=== PATIENT | male | born 1945 | race Caucasian/White ===

== ENCOUNTER 2020-02-12 12:20 | Outpatient (CLI) | payer OTHER | END 2020-02-12 12:21 | disposition home or self-care (01) | LOC: LAB 12:20 | PROVIDERS: ATTEND Ophthalmology | DX: Z01.812 Encounter for preprocedural laboratory examination (principal); Z20.828 Contact with and (suspected) exposure to other viral communicable diseases; H25.11 Age-related nuclear cataract, right eye ==

== ENCOUNTER 2020-02-15 07:18 | Day surgery (SDC) | payer OTHER ==
[~2020-02-15 07:18] MED LIST: CYCLOPENTOLATE 1% OPHTH DROPS 2 ML ONE; KETOROLAC 0.45% OPHTH DROPS ONE; PHENYLEPHRINE 2.5% OPHTH 2 ML DROPS ONE; PROPARACAINE 0.5% OPHTH DROPS 15 ML ONE
[2020-02-15] MEDS ORDERED: LACTATED RINGERS 1,000 ML IV ONE (07:33)
--- NOTE | 2020-02-15 08:28 | ANESTHESIA ---
Pre-Anesthesia VS, & Labs - Diagnosis R nuclear sclerotic cataract - Procedure R extraction cataract w/IOL Vital Signs: Temp Pulse Resp BP Pulse Ox 36.8 C 67 20 175/94 H 100 02/15/20 07:33 02/15/20 07:33 02/15/20 07:33 02/15/20 07:33 02/15/20 07:33 Height 5 ft 6 in Weight (kg) 77.9 kg - NPO >8 hours - Lab Results Current Lab Results: Laboratory Tests 02/15/20 07:47: POC Whole Bld Glucose 109 H Home Medications and Allergies Home Medications: Ambulatory Orders Alfuzosin HCl [Alfuzosin HCl ER] 02/14/20 Aspirin 02/14/20 Metoprolol Tartrate [Lopressor] 02/14/20 Rivaroxaban [Xarelto] 02/14/20 Triamterene/Hydrochlorothiazid [Triamterene-Hctz 37.5-25 mg Cp] 02/14/20 buPROPion HCL [Bupropion HCl] 02/14/20 diltiaZEM [Cardizem] 60 mg Q6H 02/14/20 Alfuzosin HCl [Alfuzosin HCl ER] 02/14/20 Aspirin 02/14/20 Metoprolol Tartrate [Lopressor] 02/14/20 Rivaroxaban [Xarelto] 02/14/20 Triamterene/Hydrochlorothiazid [Triamterene-Hctz 37.5-25 mg Cp] 02/14/20 buPROPion HCL [Bupropion HCl] 02/14/20 diltiaZEM [Cardizem] 60 mg Q6H 02/14/20 Allergies/Adverse Reactions: Allergies Allergy/AdvReac Type Severity Reaction Status Date / Time phenytoin [From Dilantin] Allergy Unknown Verified 02/15/20 07:42 lisinopril AdvReac Unknown Verified 02/15/20 07:42 Anes History & Medical History - Anesthetic History Anesthesia Complications: reports: No previous complications Family history of Anesthesia Complications: Denies Family history of Malignant Hyperthermia: Denies - Medical History Cardiovascular: reports: Hypertension, Arrhythmia Pulmonary: reports: None Gastrointestinal: reports: None Urinary: reports: None Musculoskeletal: reports: None Endocrine/Autoimmune: reports: Type 2 diabetes Skin: reports: None - Surgical History General: Colonoscopy Eyes Ears Nose Throat (EENT): Cataracts Exam General: Alert, Oriented x3, Cooperative Dental: WNL Mouth Openin Fingerbreadth Neck Mobility: Normal Mallampati classification: II Thyromental Distance: greater than 6 cm Respiratory: Lungs clear, Normal breath sounds Cardiovascular: Other (irreg, AF) Neurological: Normal speech Mental/Cognitive Status: Alert/Oriented X3, Normal for patient Plan Anesthesia Type: MAC Consent for Procedure(s) Verified and Reviewed: Yes Code Status: Attempt Resuscitation ASA classification: 3-Severe systemic disease Is this case an emergency?: No
[2020-02-15] MEDS ORDERED: MORPHINE 2 MG/ML CARPUJECT IVP PRN (08:29)
[2020-02-15] MEDS ORDERED: ONDANSETRON 4 MG/2 ML VIAL IVP PRN (08:29)
[2020-02-15] MEDS ORDERED: fentaNYL 100 MCG/2 ML VIAL IVP PRN (08:29)
[2020-02-15] MEDS ORDERED: METOCLOPRAMIDE 10 MG/2 ML VIAL IVP PRN (08:29)
[2020-02-15] MEDS ORDERED: ATROPINE ABBOJECT 1 MG/10 ML SYRINGE IVP PRN (08:29)
[2020-02-15] MEDS ORDERED: ePHEDrine 50 MG/ML VIAL IVP PRN (08:29)
[2020-02-15] MEDS ORDERED: HYDROmorphone 0.5 MG/0.5 ML SYRINGE IVP PRN (08:29)
[2020-02-15] MEDS ORDERED: NALOXONE 0.4 MG/ML VIAL IVP PRN (08:29)
[2020-02-15] MEDS ORDERED: TRIAMCIN/MOXIFLOX OPHTHALMIC 0.6 ML VIAL IO ONE ×2 (08:54→09:05)
[2020-02-15] MEDS ORDERED: TIMOLOL 0.5% OPHTH DROPS ONE (08:55)
[2020-02-15] MEDS ORDERED: VANCOMYCIN OPHTHALMI 8MG/0.8ML 8 MG/0.8 ML SYRINGE IO ONE ×2 (08:55→09:05)
[2020-02-15] MEDS ORDERED: BRIMONIDINE 0.2% OPHTH DROPS 5 ML ONE (08:55)
[2020-02-15] MEDS ORDERED: EPINEPHrine 1 MG/ML AMP ONE (08:55)
[2020-02-15] MEDS ORDERED: BSS/LIDOCAINE/EPINEPHRINE 1 ML SYRINGE ONE (08:55)
[2020-02-15] MEDS ORDERED: LACTATED RINGERS 1,000 ML IV SCH (09:00)
[2020-02-15] MEDS ORDERED: fentaNYL 100 MCG/2 ML VIAL IVP ONE (09:00)
[2020-02-15] MEDS ORDERED: MIDAZOLAM 2 MG/2 ML VIAL IVP ONE (09:00)
[2020-02-15] MEDS ORDERED: TIMOLOL 0.5% OPHTH DROPS OPTH ONE (09:04)
[2020-02-15] MEDS ORDERED: EPINEPHrine 1 MG/ML AMP IR ONE (09:04)
[2020-02-15] MEDS ORDERED: CHONDR SULF/HYALURONATE SYRINGE IO ONE (09:04)
[2020-02-15] MEDS ORDERED: BSS/LIDOCAINE/EPINEPHRINE 1 ML SYRINGE IO ONE (09:04)
[2020-02-15] MEDS ORDERED: BRIMONIDINE 0.2% OPHTH DROPS 5 ML OPTH ONE (09:04)
[2020-02-15] MEDS ORDERED: PROPARACAINE 0.5% OPHTH DROPS 15 ML EACHEYE ONE (09:05)
[2020-02-15] MEDS ORDERED: LACTATED RINGERS 500 ML IV ONE (09:20)
--- NOTE | 2020-02-15 09:30 | ANESTHESIA POST OP EVALUATION ---
Anesthesia Post Eval - Post Anesthesia Eval Vitals: Last Vital Signs Temp 37.4 C 02/15/20 09:20 Pulse 58 L 02/15/20 09:28 Resp 10 L 02/15/20 09:28 BP 131/73 H 02/15/20 09:28 Pulse Ox 98 02/15/20 09:28 CV Function Including HR & BP: positive: Stable Pain Control: positive: Satisfactory Nausea & Vomiting: positive: Negative Mental Status: positive: Baseline Respiratory Status: Airway Patent Hydration Status: Satisfactory Anesthesia Complications: positive: None
[2020-02-15 09:39] VITALS: BP 127/78
--- NOTE | 2020-02-15 09:45 | OPERATIVE REPORT ---
DATE OF SERVICE: 02/15/2020 Physician: Odilon Landaverde MD PREOPERATIVE DIAGNOSIS: Visually significant cataract, right eye. Cataract surgery was performed on the left eye at the [facility] in 2019. POSTOPERATIVE DIAGNOSIS: Visually significant cataract, right eye. Cataract surgery was performed o n the left eye at the [facility] in 2019. PROCEDURE: Phacoemulsification with posterior chamber intraocular lens implant, right eye. SURGEON: Odilon Landaverde MD ANESTHESIA: Monitored anesthesia care. COMPLICATIONS: None. OPERATIVE INDICATIONS: This is a 74-year-old man with progressive vision loss in the right eye due t o 2+ nuclear sclerotic and vacuolar cataract. Best corrected visual acuity was 20/70, with glare to 20/630 in the right eye. Indications for surgery were overall decrease in vision; difficulty seeing words, closed caption or game scores on TV; and difficulty with glare or bright lights in any situati on. He was consented at length concerning risks and benefits of cataract surgery, after which he exp ressed a desire to proceed with surgery. OPERATIVE PROCEDURE: Patient was taken to OR #3 and placed under monitored anesthesia care. A surgi santa timeout was conducted confirming correct patient, correct procedure, and correct surgical site. He was given topical anesthesia, and then prepped and draped in the usual sterile fashion. The eye w as entered at the 12 and 9 o'clock positions. Intracameral Shugarcaine was injected into the anterio r chamber, followed by Viscoat. A continuous-tear curvilinear capsulorrhexis was performed. The nuc leus was hydrodissected and phacoemulsified. The cortex was evacuated using automated infusion and a spiration. Provisc was injected in the capsular bag, and a 23.0 diopter intraocular lens was inserte d into the bag. Infusion and aspiration were used to evacuate the viscoelastic materials. The eye w as inflated to physiologic pressure using a balanced salt solution and found to be watertight. Appro ximately 0.25 mL of a mixture of triamcinolone and moxifloxacin was injected transsclerally into the vitreous in the inferotemporal quadrant. An additional 0.55 mL mixture of triamcinolone, moxifloxaci n and vancomycin was injected subconjunctivally in the superior quadrant for infection and inflammati on prophylaxis. Wound integrity was checked with Weck-Devika sponges. Patient was taken [facility] condition and given postoperative instructions. TD: 02/15/2020 09:39
== END 2020-02-15 07:19 | disposition home or self-care (01) ==
LOC: SDS 07:18
PROVIDERS: ATTEND Ophthalmology
DX: E11.36 Type 2 diabetes mellitus with diabetic cataract (principal); H25.11 Age-related nuclear cataract, right eye; I10 Essential (primary) hypertension; G47.33 Obstructive sleep apnea (adult) (pediatric); F41.9 Anxiety disorder, unspecified; I49.9 Cardiac arrhythmia, unspecified; Z98.42 Cataract extraction status, left eye
CPT/HCPCS: 66984; A9270; J3490; J7120; V2632

== ENCOUNTER 2025-03-25 14:28 | Inpatient (IN) ==
[2025-03-25 14:51] LABS: GLUCOSE, URINE (UA) >=1000 mg/dL (NEGATIVE); KETONES,URINE (UA) 80 mg/dL (NEGATIVE); OCCULT BLOOD,URINE MODERATE (NEGATIVE)
[2025-03-25 15:00] LABS: SQUAMOUS EPITHELIAL CELL,UR NONE SEEN (<= Few)
--- NOTE | 2025-03-25 15:17 | CT Report ---
PROCEDURE: CT Head WO INDICATIONS: fall found down TECHNIQUE: CT of the head was performed, without intravenous contrast. Reformats: Coronal and sagittal. For radiation dose reduction, the following was used: automated exposure control, adjustment of mA and/or kV according to patient size. COMPARISON: None. FINDINGS: Image quality: Diagnostic. CSF spaces: Basal cisterns are patent. No extra-axial fluid collections. Ventricles are normal in size and shape. Brain: No midline shift. No intracranial mass effect or hemorrhage. Torres- white matter interface is normal. Diffuse parenchymal volume loss with periventricular white matter hypodensities consistent with chronic microvascular ischemic disease. Skull and face: Calvarium and visualized facial bones are intact, without suspicious lesions. Sinuses: Visualized sinuses and mastoids are clear. IMPRESSION: No acute intracranial pathology. Reviewed by: Bryan Hirsch MD on 03/25/2025 2:14 PM LORNA Approved by: Bryan Hirsch MD on 03/25/2025 2:14 PM LORNA Station ID: [id number]
--- NOTE | 2025-03-25 15:19 | CT Report ---
PROCEDURE: CT Cervical Spine WO INDICATIONS: neck pain after fall TECHNIQUE: Noncontrast images acquired from the skull base to the T4 level. Sagittal and coronal reformats were then constructed. For radiation dose reduction, the following was used: automated exposure control, adjustment of mA and/or kV according to patient size. COMPARISON: None. FINDINGS: Image quality: Excellent. Bones: No fractures or dislocations. Visualized superior ribs are intact. Multilevel spondylitic changes. Soft tissues: Prevertebral soft tissues are normal in thickness. No paravertebral hematomas. No apical pneumothoraces. Moderate right inferior maxillary sinus disease IMPRESSION: No acute cervical findings Reviewed by: Bryan Hirsch MD on 03/25/2025 2:15 PM AKDT Approved by: Bryan Hirsch MD on 03/25/2025 2:15 PM AKDT Station ID: [id number]
--- NOTE | 2025-03-25 15:20 | XRAY Report ---
PROCEDURE: XR Chest 1V INDICATIONS: sob TECHNIQUE: One view of the chest was acquired. COMPARISON: None. FINDINGS: Surgical changes and devices: None. Lungs and pleura: Right basilar interstitial prominence and opacity concerning for pneumonia. Elevation left hemidiaphragm. Retrocardiac opacity favored to represent hiatal hernia. No pleural effusion. No pneumothorax. Mediastinum: Cardiomegaly. Normal contour otherwise. Bones and chest wall: No suspicious bony lesions. Overlying soft tissues appear unremarkable. IMPRESSION: Right basilar opacity concerning for pneumonia. Probable hiatal hernia Reviewed by: Bryan Hirsch MD on 03/25/2025 2:16 PM AKDT Approved by: Bryan Hirsch MD on 03/25/2025 2:16 PM AKDT Station ID: [id number]
[2025-03-25 15:38] LABS: HCT - HEMATOCRIT 52.4 % (42.0-52.0); HGB - HEMOGLOBIN 17.4 g/dL (14.0-18.0); MEAN PLATELET VOLUME 12.1 fL (7.4-11.4); NRBC ABSOLUTE COUNT (AUTO) 0.00 x10^3/uL; NUCLEATED RED BLOOD CELLS AUTO 0.0 /100WBC; PLT - PLATELET COUNT 117 10^3/uL (130-450); RED CELL DISTRIBUTION WIDTH 12.8 % (12.0-15.0)
[2025-03-25 15:40] LABS: SLIDE REVIEW? Indicated
[2025-03-25 15:51] LABS: ALT ALANINE AMINOTRANSFERASE 50 IU/L (10-60); AST ASPARTATE AMINOTRANSFERASE 30 IU/L (10-42); BUN - BLOOD UREA NITROGEN 19 mg/dL (6-20); CARBON DIOXIDE - CO2 22 mmol/L (21-32); CK- CREATINE KINASE 298 IU/L (30-223); CREATININE 1.0 mg/dL (0.6-1.3); ETOH - ETHANOL < 10.0 mg/dL; GFR - MDRD 72 (>89)
[2025-03-25 16:07] LABS: PLATELET ESTIMATE, MANUAL DECREASED (<130,000) (NORMAL); PLATELET MORPHOLOGY RARE GIANT PLATELETS (NORMAL); RBC MORPHOLOGY (MULTIPLE) 1+ MACROCYTOSIS (NORMAL)
[2025-03-25] MEDS: SODIUM CHLORIDE 0.9% 1,000 ML IV STA ×2 (16:15→17:40)
[2025-03-25] MEDS: cefTRIAXone 1 GM VIAL IVP STA (16:57)
--- NOTE | 2025-03-25 17:30 | ED Physician Documentation ---
History of Present Illness Stated complaint Stated Complaint: FOUND DOWN/FTT Chief complaint Chief Complaint: General History obtained from History obtained from: Patient History of Present Illness Timing: Prior to arrival Additonal information Additional information: Patient 79-year-old male presenting to the emergency department after a welfare check was called by his brother who lives about 3-1/2 hours away he noted he was talking to his brother last night and was reported he did not hear from him this morning at all and had been calling him throughout the day. Patient last heard from yesterday afternoon. Patient has history of dementia patient currently living on his own and does not take his medications according to his brother. He is supposedly on blood thinners on Eliquis but noncompliant with that patient ANO x 1 on arrival to able to follow some commands. He is incontinent on arrival and was found down by the EMS as he was unable to get up by himself. Patient declines any pain on initial examination. Meds/Allgy Home Medications Ambulatory Orders Medication Instructions Recorded Confirmed alfuzosin 10 mg tablet,extended 02/14/20 release 24 hr diltiazem HCl 60 mg tablet 60 mg Q6H 02/14/20 02/14/20 metoprolol tartrate 25 mg tablet 02/14/20 rivaroxaban 20 mg tablet (Xarelto) 02/14/20 triamterene 37.5 02/14/20 mg-hydrochlorothiazide 25 mg capsule bupropion 02/17/25 Allergies Allergies Allergy/AdvReac Type Severity Reaction Status Date / Time phenytoin (From Dilantin) Allergy Unknown Verified 03/25/25 14:45 lisinopril AdvReac Mild Unknown Verified 03/25/25 14:45 PFSH Active Problems All Active Problems (Updated 03/25/25 @ 19:55 by Kimberly Tariq PA-C) Failure to thrive in adult (Acute) CAP (community acquired pneumonia) (Acute) History of atrial fibrillation (Acute) History of diabetes mellitus (Acute) Altered mental status (Acute) Clavicle fracture (Acute) Medical History Medical History (Updated 03/25/25 @ 19:55 by Kimberly Tariq PA-C) History of dementia Myocarditis Diabetes Social History Social History Smoking Status: Unknown if ever smoked Do you feel safe in your home environment?: Yes History of physical, verbal, emotional, or financial abuse?: No POLST Patient has POLST: No Exam Exam Vital Signs: Vital Signs x48h Temp Pulse Resp BP Pulse Ox 03/25/25 18:45 96 24 03/25/25 18:00 62 16 185/122 H 94 03/25/25 16:44 68 16 103/83 95 03/25/25 14:34 36.6 C 85 18 131/100 H 96 Constitutional normal general appearance No signs of trauma to the head and O x 1 patient difficulty following commands initially HENMT normocephalic and head/scalp atraumatic Eyes PERRL Patient has normal conjunctiva difficulty following movements but pupils are equal round reactive to light and accommodation. Neck/C-Spine visual inspection normal Chest inspection of chest normal No rib tenderness Respiratory breath sounds equal bilaterally, normal respiratory effort and clear to auscultation bilaterally Cardiovascular normal heart rate noted, regular rhythm noted, no gallop and no rub Gastrointestinal abdomen normal to inspection Genitourinary no CVA tenderness Extremities Patient moving all extremity but difficult to follow all commands no obvious tenderness on palpation of upper or lower extremities no obvious deformity. Skin skin color normal Results Vitals Vitals: Vital Signs - 24 hr 03/25/25 14:34 03/25/25 16:44 03/25/25 18:00 Temperature 36.6 C Temperature Source Temporal Artery Scan Pulse Rate 85 68 62 Respiratory Rate 18 16 16 Blood Pressure 131/100 H 103/83 185/122 H O2 Saturation 96 95 94 O2 Source Room air Room air Room air Pain Intensity 0 0 0 03/25/25 18:45 Temperature Temperature Source Pulse Rate 96 Respiratory Rate 24 Blood Pressure O2 Saturation O2 Source Room air Pain Intensity Oxygen O2 Source Room air Labs Labs: Laboratory Tests 03/25/25 03/25/25 03/25/25 14:14 14:44 15:16 WBC 13.4 H RBC 5.25 Hgb 17.4 Hct 52.4 H MCV 99.8 H MCH 33.1 H MCHC 33.2 RDW 12.8 Plt Count 117 L MPV 12.1 H Neut # (Auto) 12.0 H Lymph # (Auto) 0.4 L Mower # (Auto) 0.8 Eos # (Auto) 0.0 Baso # (Auto) 0.0 Absolute Nucleated RBC 0.00 Nucleated RBC % 0.0 Manual Slide Review Indicated Platelet Estimate DECREASED (<130,000) Platelet Morphology RARE GIANT PLATELETS RBC Morph Micro Appear 1+ MACROCYTOSIS Sodium 135 Potassium 4.5 Chloride 97 L Carbon Dioxide 22 Anion Gap 16.0 H BUN 19 Creatinine 1.0 Estimated GFR (MDRD) 72 L Glucose 369 H Lactic Acid Calcium 9.9 Magnesium 1.9 Total Bilirubin 1.6 H AST 30 ALT 50 Alkaline Phosphatase 164 H Total Creatine Kinase 298 H Total Protein 7.0 Albumin 4.5 Globulin 2.5 Albumin/Globulin Ratio 1.8 Urine Color YELLOW Urine Clarity CLEAR Urine pH 6.0 Ur Specific Kenner 1.025 Urine Protein 100 H Urine Glucose (UA) >=1000 H Urine Ketones 80 Urine Occult Blood MODERATE Urine Nitrite NEGATIVE Urine Bilirubin NEGATIVE Urine Urobilinogen 0.2 (NORMAL) Ur Leukocyte Esterase NEGATIVE Urine RBC 6-10 H Urine WBC 0-3 Ur Squamous Epith Cells NONE SEEN Urine Bacteria None Seen Ur Microscopic Review INDICATED Urine Culture Comments NOT INDICATED Urine Opiates Screen NEGATIVE Ur Buprenorphine Scrn NEGATIVE Ur Oxycodone Screen NEGATIVE Urine Methadone Screen NEGATIVE Ur Barbiturates Screen NEGATIVE Ur Tricyclics Screen NEGATIVE Ur Phencyclidine Scrn NEGATIVE Ur Amphetamine Screen NEGATIVE U Methamphetamines Scrn NEGATIVE U Benzodiazepines Scrn NEGATIVE Urine Cocaine Screen NEGATIVE U Cannabinoids Screen NEGATIVE Ur Drug Screen Comment CUTOFF CONC BELOW: Ethyl Alcohol < 10.0 03/25/25 15:26 WBC RBC Hgb Hct MCV MCH MCHC RDW Plt Count MPV Neut # (Auto) Lymph # (Auto) Mower # (Auto) Eos # (Auto) Baso # (Auto) Absolute Nucleated RBC Nucleated RBC % Manual Slide Review Platelet Estimate Platelet Morphology RBC Morph Micro Appear Sodium Potassium Chloride Carbon Dioxide Anion Gap BUN Creatinine Estimated GFR (MDRD) Glucose Lactic Acid 3.8 H* Calcium Magnesium Total Bilirubin AST ALT Alkaline Phosphatase Total Creatine Kinase Total Protein Albumin Globulin Albumin/Globulin Ratio Urine Color Urine Clarity Urine pH Ur Specific Kenner Urine Protein Urine Glucose (UA) Urine Ketones Urine Occult Blood Urine Nitrite Urine Bilirubin Urine Urobilinogen Ur Leukocyte Esterase Urine RBC Urine WBC Ur Squamous Epith Cells Urine Bacteria Ur Microscopic Review Urine Culture Comments Urine Opiates Screen Ur Buprenorphine Scrn Ur Oxycodone Screen Urine Methadone Screen Ur Barbiturates Screen Ur Tricyclics Screen Ur Phencyclidine Scrn Ur Amphetamine Screen U Methamphetamines Scrn U Benzodiazepines Scrn Urine Cocaine Screen U Cannabinoids Screen Ur Drug Screen Comment Ethyl Alcohol PD Medical Decision Making ED course Complexity details: reviewed old records and reviewed results ED course: Patient 79-year-old male presenting to the emergency department after being found down during welfare check by EMS he is ANO x 1 on arrival unable to get up as he had apparently fallen. He has worsening dementia last heard from by brother yesterday afternoon or evening. Patient ANO x 1 difficulty following commands on arrival. Difficulty tracking. He has a history of diabetes hypertension and has hit history of being on blood thinners but is noncompliant with medications. Vital stable on arrival he is normotensive afebrile nontachycardic saturating well on room air his labs on arrival are concerning for white count of 13.1 he is no signs of anemia CMP shows no hyponatremia or hyperkalemia slight anion gap at 16 with a GFR of 72 and blood sugar 369. His magnesium level within normal limits no changes in your ALT but slightly patient CK at 98. IV fluids were started here in the ED patient received 2 L of fluids here in the ED UA shows no signs of infection but chest x-ray is concerning for right lobe pneumonia. CT head and neck showed no acute intracranial or bony abnormality. Discussed case with brother who was worried about Anil increasing dementia noticing increased weakness and incoherent that started last night. Patient stopped taking all of his medications including insulin many months ago. Patient's brother states he hasn't even opened his mail and has been obsessed with cutting up the wood around his house. He notes his worsening of his condition was last night. Patient's brother Shekhar is best reached at [phone] and living 3 and a half hours away but will be here tomorrow and is his POA. He notes he is DNR and DNI. Patient continues to worsen here in the ED he had episode of irritability having difficulty sitting still or following commands he was given a dose of Zyprexa and was able to rest here in the ED when he woke again he appeared to be talking to someone else and appeared to have some left-sided neglect possibly secondary to stroke. Patient appears to be hallucinating but confirmed with patient's brother he has no history of alcohol use small dose of Ativan ordered as patient most likely is . Discussed case with Ginette ROMERO who will admit patient. Discharge Plan Discharge Patient Disposition: 66 [facility] DC/Xfer Condition: Stable Clinical Impression: Altered mental status, History of diabetes mellitus, CAP (community acquired pneumonia), Failure to thrive in adult Interventions: ED Admission Assessment Last Done: 03/25/25 19:57
[2025-03-25] MEDS: OLANZapine 10 MG VIAL IM STA (18:09)
[2025-03-25] MEDS ORDERED: VANCOMYCIN 1 GM VIAL ONE (18:43)
[2025-03-25] MEDS: IPRATROPIUM/ALBUTEROL 3 ML NEB INH STA (18:45)
--- NOTE | 2025-03-25 18:48 | HISTORY & PHYSICAL EXAMINATION ---
Chief Complaint Chief Complaint Chief Complaint: found down History of Present Illness Admitted From Admitted From:: home History Obtained From Records Reviewed: ED note 02/17, EMS report 02/17 History obtained from: records review, patient unable to give a history History of Present Illness HPI Comment/Other: 79-year-old male who presents to the emergency department today with failure to thrive/found down. Presented to the ED via EMS found in his own urine during a welfare check. The only history him given as he has a history of dementia which is rapidly progressing per his brother who called for the welfare check. Patient lives alone. Limited records available. I can find a history and physical from a cataract repair in 2019 otherwise there are no records available in [place]. He lists a PCP of Dr. Angela Flores in [place]. 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 Today he is oriented to self only. Meds/Allgy Home Medications Ambulatory Orders Medication Instructions Recorded Confirmed alfuzosin 10 mg tablet,extended 02/14/20 release 24 hr diltiazem HCl 60 mg tablet 60 mg Q6H 02/14/20 02/14/20 metoprolol tartrate 25 mg tablet 02/14/20 rivaroxaban 20 mg tablet (Xarelto) 02/14/20 triamterene 37.5 02/14/20 mg-hydrochlorothiazide 25 mg capsule bupropion 02/17/25 Allergies Allergies Allergy/AdvReac Type Severity Reaction Status Date / Time phenytoin (From Dilantin) Allergy Unknown Verified 03/25/25 14:45 lisinopril AdvReac Mild Unknown Verified 03/25/25 14:45 PFSH Active Problems All Active Problems (Updated 03/25/25 @ 19:50 by NICK Rosas) Failure to thrive in adult (Acute) CAP (community acquired pneumonia) (Acute) History of atrial fibrillation (Acute) History of diabetes mellitus (Acute) Altered mental status (Acute) Clavicle fracture (Acute) Medical History Medical History (Updated 03/25/25 @ 19:50 by NICK Rosas) History of dementia Myocarditis Diabetes Social History Social History Do you feel safe in your home environment?: Yes History of physical, verbal, emotional, or financial abuse?: No POLST Patient has POLST: No Review of Systems Status of ROS: unobtainable due to mental status Prior Level of Functionality: unclear, was living alone. EMS report from 02/17 mentions that his dementia is worsening and he was trying to get help [facility] Exam Exam Vital Signs: Vital Signs x48h Temp Pulse Resp BP Pulse Ox 03/25/25 18:45 96 24 03/25/25 18:00 62 16 185/122 H 94 03/25/25 16:44 68 16 103/83 95 03/25/25 14:34 36.6 C 85 18 131/100 H 96 Constitutional poorly groomed, dirt under fingernails HENMT normocephalic and head/scalp atraumatic Eyes conjunctivae normal Neck/C-Spine visual inspection normal Lymph no lymphadenopathy noted Chest inspection of chest normal and palpation of chest normal Respiratory breath sounds equal bilaterally and wheezing noted wheeze on the right, diminished on the left Cardiovascular normal heart rate noted irreg irreg Gastrointestinal abdomen soft to palpation easily reducible umb hernia Back/Pelvis spine normal to inspection Extremities normal to inspection and normal to palpation Neurology left sided neglect. oriented to self only, actively hallucinating. moves extremities equally, but does not seem to notice things on the left side of his body. Psychiatry mental status abnormal, orientation abnormal, thought process abnormality noted and uncooperative not cooperative. believes that he is in his kitchen, in a chair, and reaching for his cell phone that is not there. Skin no wounds rash on extensor surfaces of knees and periumbilical noted, consistent with psoriasis Conclusion/Plan Problem List (1) Altered mental status: Plan: acute alteration in mental status. This patient was found at home in urine. I am not clear how long since he was last seen normal. He has left sided neglect. I am fairly certain that he does not have a history of CVA, although I have limited records available and patient unable to provide any hx at all. I do have a pre op H&P brief form that list history of head trauma in the past. He is actively hallucinating. ED provider spoke with his brother, who will be coming to the hospital. Brother states DNR/DNI, and that he is the medical POA. Brother states that patient does not have hx of alcohol use. Brother also states that patient has not taken his medications in some time, which include blood thinners for CVA prevention in a fib and meds to control his DM Etoh level <10 MUDS is pending at this time. Echocardiogram in the AM MRI in the AM, or as soon as we can complete screening. Cannot rule out CVA at this time. Discussed with Kimberly Tariq PA-C in the ED. I am admitting this patient to inpatient status. With his neuro deficit, present for unknown length of time, obvious dehydration on labs, he presents with a failure to thrive and will likely require >2MN to evaluate, treat and stabilize his medical conditions. (2) CAP (community acquired pneumonia): Plan: Patient with some wheezing in the ED, as well as very mild hypoxia to 90%. CXR is read as right sided basilar opacity concerning for PNA. I will treat him with duonebs, Rocephin for 5 days and azithromycin for 3 days. I do not beleive that his PNA is the source of his AMS. His WBC is 13.4, I have ordered repeat CBC for the AM. (3) Diabetes: Plan: brother reports that he is not taking his meds. I have ordered A1C with AM labs. I have started the patient on DM diet and SSI. Will see how sugars trend and treat accordingly. (4) Clavicle fracture: Plan: about a month ago. reviewed imaging. This looks like a non displaced (or minimally displaced) left clavicle fracture, will need to be mindful of this as we start PT. (5) History of dementia: Plan: Which has been worsening lately, according to limited hx given by brother. Patient is acutely decompensated currently and oriented to self only. unclear what recent baseline has been. (6) History of atrial fibrillation: Plan: not taking meds. looks like has been on Xaralto in the past, brother reports not taking meds. no EKG done in the ED. has not been tachycardic. I have ordered EKG. need to re consider the merits of AC vs not, given his obvious fall risk. (7) Failure to thrive in adult: Plan: Obvious dehydration with elevated h/h, ketones in urine. He was given 2L NS in the ED, I am giving him LR at 100cc/hr overnight, as well as encouraging him to take po fluids. Plan I have spent 78 minutes in the care of this patient today. This includes time [id number], review and ordering of diagnostic imaging and laboratory studies and consultation with other providers. Monitoring the patient's signs symptoms, evaluation of medication effectiveness and patient's response to treatment. Lab Results Lab results reviewed: Yes 03/25/25 15:16 03/25/25 15:16 Core Measures Anticipated LOS I expect patient to be DC'd or transferred within 96 hours.: Yes DVT/VTE - Prophylaxis VTE/DVT Device ordered at admit?: Yes VTE/DVT Prophylaxis med ordered at admit?: Yes
[2025-03-25] MEDS: VANCOMYCIN INJ 1.5 GM in SODIUM CHLORIDE 0.9% 500 ML IV STA (18:52)
[2025-03-25] MEDS: LORazepam 2 MG/ML VIAL IVP STA ×2 (19:41→19:42)
[2025-03-25] MEDS ORDERED: IPRATROPIUM/ALBUTEROL 3 ML NEB INH PRN (19:41)
[2025-03-25] MEDS ORDERED: SODIUM CHLORIDE FLUSH 0.9% 10 ML SYRINGE IVP PRN (19:41)
[2025-03-25 19:51] LABS: AMPHETAMINE SCREEN,URINE NEGATIVE (NEGATIVE); BARBITURATE SCREEN,UR NEGATIVE (NEGATIVE); BENZODIAZEPINES SCREEN, URINE NEGATIVE (NEGATIVE); BUPRENORPHINE SCREEN, URINE NEGATIVE (NEGATIVE); COCAINE SCREEN URINE NEGATIVE (NEGATIVE); METHADONE SCREEN, URINE NEGATIVE (NEGATIVE); METHAMPHETAMINES SCREEN, URINE NEGATIVE (NEGATIVE); OPIATE SCREEN, URINE NEGATIVE (NEGATIVE); THC CANNABINOID SCREEN, URINE NEGATIVE (NEGATIVE)
[2025-03-25] MEDS: LACTATED RINGERS 1,000 ML IV SCH (20:17)
[2025-03-25] MEDS: INSULIN LISPRO 300 UNIT/3 ML PEN SUBQ SCH (21:25)
[2025-03-25] MEDS: AZITHROMYCIN INJ 500 MG in SODIUM CHLORIDE 0.9% 250 ML IV SCH (21:54)
[2025-03-26] MEDS: SODIUM CHLORIDE FLUSH 0.9% 10 ML SYRINGE IVP SCH (01:59)
[2025-03-26 04:33] LABS: HCT - HEMATOCRIT 44.2 % (42.0-52.0); HGB - HEMOGLOBIN 15.0 g/dL (14.0-18.0); MEAN PLATELET VOLUME 10.1 fL (7.4-11.4); NRBC ABSOLUTE COUNT (AUTO) 0.00 x10^3/uL; NUCLEATED RED BLOOD CELLS AUTO 0.0 /100WBC; PLT - PLATELET COUNT 203 10^3/uL (130-450); RED CELL DISTRIBUTION WIDTH 13.2 % (12.0-15.0)
[2025-03-26 04:38] LABS: SLIDE REVIEW? Indicated
[2025-03-26 04:52] LABS: PLATELET ESTIMATE, MANUAL NORMAL (130-450,000) (NORMAL); PLATELET MORPHOLOGY NORMAL APPEARANCE (NORMAL); RBC MORPHOLOGY (MULTIPLE) NORMAL APPEARANCE (NORMAL); WBC MORPHOLOGY (MULTIPLE) NORMAL APPEARANCE (NORMAL)
[2025-03-26 04:55] LABS: BUN - BLOOD UREA NITROGEN 22.0 mg/dL (6-20); CARBON DIOXIDE - CO2 25.0 mmol/L (21-32); CREATININE 1.1 mg/dL (0.6-1.3); GFR - MDRD 65.0 (>89)
[2025-03-26 05:06] LABS: ESTIMATED AVERAGE GLUCOSE 269 mg/dL (70-100); HEMOGLOBIN A1c% 11.0 % (4.27-6.07)
[2025-03-26] MEDS: ENOXAPARIN 40 MG/0.4 ML SYRINGE SUBQ SCH (08:57)
[2025-03-26] MEDS: cefTRIAXone 1 GM VIAL IVP SCH (08:58)
[2025-03-26] MEDS: INSULIN GLARGINE-YFGN 300 UNIT/3 ML PEN SUBQ ONE (11:09)
--- NOTE | 2025-03-26 12:39 | PROVIDER PROGRESS NOTE ---
Subjective Prog Note Date Prog Note Date: 03/26/25 Subjective Subjective: He has been a little less confused this AM. Was able to eat some breakfast this AM. He tells me that he has been taking all of his meds. Today he is able to tell me that he sees Dr Lucas at the [facility] clinic in [place]. He continues to be somewhat confused. At times he is oriented to self and place, and then later this afternoon, he is hallucinating. His brother arrives at the bedside at about 430 this afternoon. He states that Bryan has had a an acute decline in the last 2 weeks or so. His brother has been calling him 2 times a day and has set up his medications in pill amanda so that he will take them. However he is not taking his medications. His brother notes that the left sided neglect that we noted on admission is new since yesterday. What happened was Shekhar called his brother using his Kindra device at about 1:00 in the morning and said he could not find his phone then about 9:00 in the morning he called Shekhar again very confused the 9 AM call was what precipitated the welfare check that eventually landed the patient in the hospital. [place] The patient lives alone, he has 7 sisters home care who comes into the home on Wednesday and Wednesday to help him do his shopping and do some light cleaning. The brother comes up weekly to check in on him. Overall though his brother Shekhar relates to me that the situation is rather untenable and this is illustrated by the events of the last 24 hours. Current Medications Current Medications Current Medications: Current Medications Generic Name Dose Route Start Last Admin Trade Name Freq PRN Reason Stop Dose Admin Acetaminophen 650 mg 03/25/25 19:41 Acetaminophen 325 Mg Tablet PO Q4HR PRN Pain 1 to 4, or Fever Albuterol/Ipratropium 3 ml 03/25/25 19:41 Ipratropium/Albuterol 3 Ml Neb INH Q4HR PRN Wheezing Ceftriaxone Sodium 1 gm 03/26/25 09:00 03/26/25 08:58 Ceftriaxone 1 Gm Vial IVP 1 gm DAILY REMEDIOS Administration Enoxaparin Sodium 40 mg 03/26/25 09:00 03/26/25 08:57 Enoxaparin 40 Mg/0.4 Ml Syringe SUBQ 40 mg DAILY REMEDIOS Administration Azithromycin 500 mg/ Sodium 250 mls @ 250 mls/hr 03/25/25 19:41 03/26/25 10:48 Chloride IV Infused DAILY REMEDIOS Infusion Lactated Ringer's 1,000 mls @ 100 mls/hr 03/25/25 20:00 03/26/25 11:09 Lr IV 100 mls/hr .Q10H REMEDIOS Administration Insulin Human Lispro 1 - 5 unit 03/25/25 21:00 03/26/25 08:18 Insulin Lispro 300 Unit/3 Ml Pen SUBQ 3 unit 0800,1200,1700,2100 REMEDIOS Administration Protocol Ondansetron HCl 4 mg 03/25/25 19:41 Ondansetron 4 Mg/2 Ml Vial IVP Q6HR PRN Nausea / Vomiting Quetiapine Fumarate 50 mg 03/25/25 19:20 Quetiapine 25 Mg Tablet PO HS PRN Agitation Sodium Chloride 10 ml 03/25/25 19:41 Sodium Chloride Flush 0.9% 10 Ml Syringe IVP PRN PRN NEEDED PER PROVIDER ORDERS Sodium Chloride 10 ml 03/26/25 01:00 03/26/25 08:58 Sodium Chloride Flush 0.9% 10 Ml Syringe IVP 10 ml 0100,0900,1700 REMEDIOS Administration Objective Vital Signs/Intake & Output Reviewed Vital Signs: Yes Vital Signs: Vital Signs x48h Pulse BP 03/26/25 09:08 84 153/88 H Intake & Output: Intake & Output 03/23/25 03/24/25 03/25/25 03/26/25 23:59 23:59 23:59 23:59 Intake Total 2750 / 2750 1450 / 1450 Output Total 250 / 250 Balance 2750 / 2750 1200 / 1200 Weight (kg) 70 kg Objective General Appearance: positive Alert Eyes Bilateral: positive Conjunctivae nml ENT: positive ENT inspection nml Neck: positive Nml inspection Respiratory: positive No respiratory distress and Breath sounds nml Cardiovascular: positive Regular rate & rhythm Abdomen: positive Non-tender, No distention and Other (reducible hernia at umbilicus) Skin: positive Other (psoriasis at extensor surfaces) Extremities: positive Non-tender and Pedal edema (1+) Neurologic/Psychiatric: positive Disoriented to place and Disoriented to time; negative Disoriented to person Lab Results 03/26/25 04:27 03/26/25 04:27 Other Labs: Lab Results x24hrs 03/26/25 03/26/25 03/26/25 Range/Units 11:35 08:03 04:27 WBC 12.5 H (4.8-10.8) x10^3/uL RBC 4.48 L (4.70-6.10) 10^6/uL Hgb 15.0 (14.0-18.0) g/dL Hct 44.2 (42.0-52.0) % MCV 98.7 H (80.0-94.0) fL MCH 33.5 H (27.0-31.0) pg MCHC 33.9 (32.0-36.0) g/dL RDW 13.2 (12.0-15.0) % Plt Count 203 (130-450) 10^3/uL MPV 10.1 (7.4-11.4) fL Neut # (Auto) 9.8 H (1.5-6.6) 10^3/uL Lymph # (Auto) 0.8 L (1.5-3.5) 10^3/uL [place] # (Auto) 1.8 H (0.0-1.0) 10^3/uL Eos # (Auto) 0.0 (0.0-0.7) 10^3/uL Baso # (Auto) 0.0 (0.0-0.1) 10^3/uL Absolute Nucleated RBC 0.00 x10^3/uL Nucleated RBC % 0.0 /100WBC Manual Slide Review Indicated WBC Morphology NORMAL APPEARANCE (NORMAL) Platelet Estimate NORMAL (130-450,000) (NORMAL) Platelet Morphology NORMAL APPEARANCE (NORMAL) RBC Morph Micro Appear NORMAL APPEARANCE (NORMAL) Sodium 139 (135-145) mmol/L Potassium 4.3 (3.5-4.5) mmol/L Chloride 105 (101-111) mmol/L Carbon Dioxide 25 (21-32) mmol/L Anion Gap 9.0 (6-13) BUN 22 H (6-20) mg/dL Creatinine 1.1 (0.6-1.3) mg/dL Estimated GFR (MDRD) 65 L (>89) Glucose 286 H (74-104) mg/dL POC Whole Bld Glucose 251 252 (70-100) mg/dL Estimat Average Glucose 269 H (70-100) mg/dL Hemoglobin A1c % 11.0 H (4.27-6.07) % Lactic Acid (0.5-2.2) mmol/L Calcium 9.2 (8.5-10.3) mg/dL Magnesium (1.7-2.3) mg/dL Total Bilirubin (0.2-1.0) mg/dL AST (10-42) IU/L ALT (10-60) IU/L Alkaline Phosphatase (42-121) IU/L Total Creatine Kinase (30-223) IU/L Total Protein (6.4-8.9) g/dL Albumin (3.2-5.5) g/dL Globulin (2.1-4.2) g/dL Albumin/Globulin Ratio (1.0-2.2) Urine Color Urine Clarity (CLEAR) Urine pH (5.0-7.5) PH Ur Specific [place] (1.002-1.030) Urine Protein (NEGATIVE) mg/dL Urine Glucose (UA) (NEGATIVE) mg/dL Urine Ketones (NEGATIVE) mg/dL Urine Occult Blood (NEGATIVE) Urine Nitrite (NEGATIVE) Urine Bilirubin (NEGATIVE) Urine Urobilinogen (NORMAL) E.U./dL Ur Leukocyte Esterase (NEGATIVE) Urine RBC (0-5) /HPF Urine WBC (0-3) /HPF Ur Squamous Epith Cells (<= Few) Urine Bacteria (None Seen) /HPF Ur Microscopic Review Urine Culture Comments Urine Opiates Screen (NEGATIVE) Ur Buprenorphine Scrn (NEGATIVE) Ur Oxycodone Screen (NEGATIVE) Urine Methadone Screen (NEGATIVE) Ur Barbiturates Screen (NEGATIVE) Ur Tricyclics Screen (NEGATIVE) Ur Phencyclidine Scrn (NEGATIVE) Ur Amphetamine Screen (NEGATIVE) U Methamphetamines Scrn (NEGATIVE) U Benzodiazepines Scrn (NEGATIVE) Urine Cocaine Screen (NEGATIVE) U Cannabinoids Screen (NEGATIVE) Ur Drug Screen Comment Ethyl Alcohol mg/dL 03/25/25 03/25/25 03/25/25 Range/Units 21:23 15:26 15:16 WBC 13.4 H (4.8-10.8) x10^3/uL RBC 5.25 (4.70-6.10) 10^6/uL Hgb 17.4 (14.0-18.0) g/dL Hct 52.4 H (42.0-52.0) % MCV 99.8 H (80.0-94.0) fL MCH 33.1 H (27.0-31.0) pg MCHC 33.2 (32.0-36.0) g/dL RDW 12.8 (12.0-15.0) % Plt Count 117 L (130-450) 10^3/uL MPV 12.1 H (7.4-11.4) fL Neut # (Auto) 12.0 H (1.5-6.6) 10^3/uL Lymph # (Auto) 0.4 L (1.5-3.5) 10^3/uL [place] # (Auto) 0.8 (0.0-1.0) 10^3/uL Eos # (Auto) 0.0 (0.0-0.7) 10^3/uL Baso # (Auto) 0.0 (0.0-0.1) 10^3/uL Absolute Nucleated RBC 0.00 x10^3/uL Nucleated RBC % 0.0 /100WBC Manual Slide Review Indicated WBC Morphology (NORMAL) Platelet Estimate DECREASED (<130,000) (NORMAL) Platelet Morphology RARE GIANT PLATELETS (NORMAL) RBC Morph Micro Appear 1+ MACROCYTOSIS (NORMAL) Sodium 135 (135-145) mmol/L Potassium 4.5 (3.5-4.5) mmol/L Chloride 97 L (101-111) mmol/L Carbon Dioxide 22 (21-32) mmol/L Anion Gap 16.0 H (6-13) BUN 19 (6-20) mg/dL Creatinine 1.0 (0.6-1.3) mg/dL Estimated GFR (MDRD) 72 L (>89) Glucose 369 H (74-104) mg/dL POC Whole Bld Glucose 355 (70-100) mg/dL Estimat Average Glucose (70-100) mg/dL Hemoglobin A1c % (4.27-6.07) % Lactic Acid 3.8 H* (0.5-2.2) mmol/L Calcium 9.9 (8.5-10.3) mg/dL Magnesium 1.9 (1.7-2.3) mg/dL Total Bilirubin 1.6 H (0.2-1.0) mg/dL AST 30 (10-42) IU/L ALT 50 (10-60) IU/L Alkaline Phosphatase 164 H (42-121) IU/L Total Creatine Kinase 298 H (30-223) IU/L Total Protein 7.0 (6.4-8.9) g/dL Albumin 4.5 (3.2-5.5) g/dL Globulin 2.5 (2.1-4.2) g/dL Albumin/Globulin Ratio 1.8 (1.0-2.2) Urine Color Urine Clarity (CLEAR) Urine pH (5.0-7.5) PH Ur Specific [place] (1.002-1.030) Urine Protein (NEGATIVE) mg/dL Urine Glucose (UA) (NEGATIVE) mg/dL Urine Ketones (NEGATIVE) mg/dL Urine Occult Blood (NEGATIVE) Urine Nitrite (NEGATIVE) Urine Bilirubin (NEGATIVE) Urine Urobilinogen (NORMAL) E.U./dL Ur Leukocyte Esterase (NEGATIVE) Urine RBC (0-5) /HPF Urine WBC (0-3) /HPF Ur Squamous Epith Cells (<= Few) Urine Bacteria (None Seen) /HPF Ur Microscopic Review Urine Culture Comments Urine Opiates Screen (NEGATIVE) Ur Buprenorphine Scrn (NEGATIVE) Ur Oxycodone Screen (NEGATIVE) Urine Methadone Screen (NEGATIVE) Ur Barbiturates Screen (NEGATIVE) Ur Tricyclics Screen (NEGATIVE) Ur Phencyclidine Scrn (NEGATIVE) Ur Amphetamine Screen (NEGATIVE) U Methamphetamines Scrn (NEGATIVE) U Benzodiazepines Scrn (NEGATIVE) Urine Cocaine Screen (NEGATIVE) U Cannabinoids Screen (NEGATIVE) Ur Drug Screen Comment Ethyl Alcohol < 10.0 mg/dL 03/25/25 03/25/25 Range/Units 14:44 14:14 WBC (4.8-10.8) x10^3/uL RBC (4.70-6.10) 10^6/uL Hgb (14.0-18.0) g/dL Hct (42.0-52.0) % MCV (80.0-94.0) fL MCH (27.0-31.0) pg MCHC (32.0-36.0) g/dL RDW (12.0-15.0) % Plt Count (130-450) 10^3/uL MPV (7.4-11.4) fL Neut # (Auto) (1.5-6.6) 10^3/uL Lymph # (Auto) (1.5-3.5) 10^3/uL [place] # (Auto) (0.0-1.0) 10^3/uL Eos # (Auto) (0.0-0.7) 10^3/uL Baso # (Auto) (0.0-0.1) 10^3/uL Absolute Nucleated RBC x10^3/uL Nucleated RBC % /100WBC Manual Slide Review WBC Morphology (NORMAL) Platelet Estimate (NORMAL) Platelet Morphology (NORMAL) RBC Morph Micro Appear (NORMAL) Sodium (135-145) mmol/L Potassium (3.5-4.5) mmol/L Chloride (101-111) mmol/L Carbon Dioxide (21-32) mmol/L Anion Gap (6-13) BUN (6-20) mg/dL Creatinine (0.6-1.3) mg/dL Estimated GFR (MDRD) (>89) Glucose (74-104) mg/dL POC Whole Bld Glucose (70-100) mg/dL Estimat Average Glucose (70-100) mg/dL Hemoglobin A1c % (4.27-6.07) % Lactic Acid (0.5-2.2) mmol/L Calcium (8.5-10.3) mg/dL Magnesium (1.7-2.3) mg/dL Total Bilirubin (0.2-1.0) mg/dL AST (10-42) IU/L ALT (10-60) IU/L Alkaline Phosphatase (42-121) IU/L Total Creatine Kinase (30-223) IU/L Total Protein (6.4-8.9) g/dL Albumin (3.2-5.5) g/dL Globulin (2.1-4.2) g/dL Albumin/Globulin Ratio (1.0-2.2) Urine Color YELLOW Urine Clarity CLEAR (CLEAR) Urine pH 6.0 (5.0-7.5) PH Ur Specific [place] 1.025 (1.002-1.030) Urine Protein 100 H (NEGATIVE) mg/dL Urine Glucose (UA) >=1000 H (NEGATIVE) mg/dL Urine Ketones 80 (NEGATIVE) mg/dL Urine Occult Blood MODERATE (NEGATIVE) Urine Nitrite NEGATIVE (NEGATIVE) Urine Bilirubin NEGATIVE (NEGATIVE) Urine Urobilinogen 0.2 (NORMAL) (NORMAL) E.U./dL Ur Leukocyte Esterase NEGATIVE (NEGATIVE) Urine RBC 6-10 H (0-5) /HPF Urine WBC 0-3 (0-3) /HPF Ur Squamous Epith Cells NONE SEEN (<= Few) Urine Bacteria None Seen (None Seen) /HPF Ur Microscopic Review INDICATED Urine Culture Comments NOT INDICATED Urine Opiates Screen NEGATIVE (NEGATIVE) Ur Buprenorphine Scrn NEGATIVE (NEGATIVE) Ur Oxycodone Screen NEGATIVE (NEGATIVE) Urine Methadone Screen NEGATIVE (NEGATIVE) Ur Barbiturates Screen NEGATIVE (NEGATIVE) Ur Tricyclics Screen NEGATIVE (NEGATIVE) Ur Phencyclidine Scrn NEGATIVE (NEGATIVE) Ur Amphetamine Screen NEGATIVE (NEGATIVE) U Methamphetamines Scrn NEGATIVE (NEGATIVE) U Benzodiazepines Scrn NEGATIVE (NEGATIVE) Urine Cocaine Screen NEGATIVE (NEGATIVE) U Cannabinoids Screen NEGATIVE (NEGATIVE) Ur Drug Screen Comment CUTOFF CONC BELOW: Ethyl Alcohol mg/dL Sepsis Event Note (H) Sepsis Criteria Sepsis Criteria: WBC count greater than 12,000 or less than 4000 Assessment/Plan Problem List (1) Altered mental status: Impression: Yesterday evening was actively hallucinating. Today is oriented to self and place.Then later this afternoon is once again hallucinating. He continues to have left sided neglect, but is moving his left side. he is a and uses [facility] for his [facility]. He is still quite altered, it takes him some time to name an object (pen) and tell me what I do with it. He is able to eat small amounts, has not been out of bed. His encephalopathy is Waxing and waning. I do not have reason to think this is substance withdrawal. MUDS was negative. (2) CAP (community acquired pneumonia): Impression: Day 2/3 Azithromycin, day 2/5 Rocephin- He is not hypoxic. He is not coughing. He is swallowing well. no reason to think this is aspiration. I will continue to treat. Leukocytosis is improving. from 13.4 at admission, 12.5 now. no fevers. (3) Clavicle fracture: Impression: does not seem to have any pain associated with this. need to keep this in mind with PT evaluation. (4) History of atrial fibrillation: Impression: EKG on admit shows atrial fib. med rec is not complete. I do see Xarelto on his med list though. I discussed I discussed the possibility of restarting the patient's apixaban with his brother. There is no large stroke seen on CT scan MRI read is pending at this time. I discussed the risk of intracranial hemorrhage associated with trauma and patient to use apixaban. At this point his brother would like him to restart the medication. I will restart his apixaban. I am going to hold beta-blockers for now, As his heart rates have been less than 100. (5) Failure to thrive in adult: Impression: Found down. Living alone, he is not doing well. Likely needs supervised living environment. PT evaluation is pending at this time. I am stopping IVF when current liter finishes. PT did not see him today due to scheduling of MRI etc. He will be seen by PT tomorrow. I did receive a meds list which is somewhat incomplete. As the patient has not filled any meds since October of this year. Typically medications from [facility] pharmacies are filled with 3-month supplies. It is possible that he takes metoprolol 50 mg a day it is also possible that he takes metoprolol 12.5 mg a day he has both of these at home. This is metoprolol succinate. He takes diltiazem 120 mg a day, he takes folic acid daily he takes methotrexate daily and he takes apixaban daily. Again none of these medications have been filled in quite some time. This patient's diagnosis and treatment plan was discussed this AM with attending physician as a part of multi disciplinary rounding meeting. I have spent 52 minutes in the care of this patient today. This includes time [id number], review and ordering of diagnostic imaging and laboratory studies. Monitoring the patient's signs symptoms, evaluation of medication effectiveness and patient's response to treatment.
--- NOTE | 2025-03-26 14:36 | PHARMACY PROGRESS NOTE ---
Best Possible Medication History Admit Date and Time: 03/25/25 1909 Home Medications Medication Instructions Recorded Confirmed Type Home Medications Unobtainable 03/26/25 03/26/25 History Processed by: Pharmacy Medications reviewed in ED?: Yes Medication History completed: Yes Patient Interview: Pt unable to participate Secondary Source(s): Pharmacy records and Insurance records [facility] Statement: PATIENT STATES THAT HE HAS NOT TAKEN ANY MEDICATIONS IN A LONG TIME AND USED [facility] WHO SAYS THERE ARE NO EXISTING RECORDS FOR THE PAST 6 MONTHS ( FAR BACK THEIR NEW SYSTEM GOES) As the person ultimately responsible for medication therapy, providers are able to order a medication from an existing home medication list in [facility] via the "Reconcile Routine" prior to Confirmation of that medication by nursing support worker. Such practice is discouraged except when the physician, in their clinical judgment, deems that a medical need exists for a medication without regard to previous use.
--- NOTE | 2025-03-26 19:45 | ECHO Report ---
Version: 1 Study ID: [id number] [id number] Adult Echocardiogram Report Name: DWIGHT BRAUN Study Date: 03/26/2025, 7: 26 AM BP: 147 / 76 mmHg Patient Location: [facility] [place]^[facility] [place]^01 HR: 88 bpm : 1945 (MM/DD/YYYY) Gender: Male Height: 67 in Age: 79 Years Weight: 154 lb BSA: 1.81 m² Reason For Study: left sided neglect, AMS Interpretation Summary There is mild concentric increase in the wall thickness of the left ventricle. The right ventricle is severely dilated. The right ventricular systolic function is severely decreased. The visual left ventricular ejection fraction is estimated at 40 to 45%. Left to Right shunts noted by Color flow doppler. Global left ventricular systolic function is mildly decreased. Left Ventricle: The left ventricle is normal in size. There is mild concentric increase in the wall thickness of the left ventricle. No thrombus seen in the left ventricle. The visual left ventricular ejection fraction is estimated at 40 to 45%. Global left ventricular systolic function is mildly decreased. The interventricular septum is flattened in diastole ('D' shaped left ventricle) consistent with right ventricular volume overload. Right Ventricle: The right ventricle is severely dilated. The right ventricular systolic function is severely decreased. Aortic Valve: The aortic valve is mildly calcified. The aortic valve is trileaflet. No hemodynamically significant valvular aortic stenosis. Mild aortic regurgitation is present. Mitral Valve: The mitral valve leaflets are structurally normal with normal motion. No evidence of mitral stenosis is seen. There is mild mitral regurgitation. Tricuspid Valve: The tricuspid valve is structurally normal. There is no tricuspid stenosis. Mild to moderate tricuspid regurgitation present. Pulmonic Valve: The pulmonic valve cusps are thin and pliable; valve motion is normal. There is no pulmonic valvular stenosis. Mild pulmonic valvular regurgitation is present. Left Atrium: The left atrium is severely dilated. Right Atrium: The right atrium is severely dilated. The inferior vena cava is significantly dilated with diminished collapse with sniff (estimated right atrial pressure 15-20mmHg). Atrial Septum: Left to Right shunts noted by Color flow doppler. Aorta: The ascending aorta is normal in size. The transverse arch is normal in size. The sinuses of Valsalva are normal in size. Pulmonary Artery: The pulmonary artery is normal size. The pulmonary artery systolic pressure is severely increased. Inferior vena cava dynamics indicate severely elevated right atrial pressures. The right ventricular systolic pressure is 62mmHg. Pericardium/Pleural Space: There is no pericardial effusion. A left pleural effusion is present. Left Ventricle IVSd: 1.14 cm LVIDd: 4.1 cm LVPWd: 1.09 cm LVIDs: 3.3 cm ESV(sp4-el): 126.6 ml Atria LA dimension: 7.5 cm LAV(MOD-sp4): 136.0 ml LAV(MOD-sp2): 131.5 ml Aortic Valve LVOT diam: 2.04 cm LV V1 mean P.63 mmHg LV V1 mean: 37.3 cm/sec LV V1 VTI: 8.7 cm Ao V2 VTI: 17.1 cm Ao mean P.13 mmHg Ao V2 mean: 70.1 cm/sec LV V1 max: 51.7 cm/sec LV V1 max P.07 mmHg Ao max P.7 mmHg Ao V2 max: 96.3 cm/sec Mitral Valve MV max P.9 mmHg MV V2 max: 111.0 cm/sec MV mean P.85 mmHg MV V2 mean: 60.3 cm/sec MV V2 VTI: 18.9 cm Tricuspid Valve TR max P.8 mmHg TR max dina: 323.5 cm/sec TV max P.8 mmHg Aorta Ao root diam: 3.0 cm MMode/2D Measurements & Calculations Ao root diam: 3.0 cm BMI: 24.1 kilograms/m² BSA([facility]): 1.82 m² ESV(sp4-el): 126.6 ml IVSd: 1.14 cm LA A4C-A/L: 32.4 cm² LA dimension: 7.5 cm LA ESV-A/L: 113.1 ml LA Vol Index: 15.8 ml/m² LAV(MOD-sp2): 131.5 ml LAV(MOD-sp4): 136.0 ml LVIDd: 4.1 cm LVIDs: 3.3 cm LVOT diam: 2.04 cm LVPWd: 1.09 cm RA A4Cs: 31.4 cm² Doppler Measurements & Calculations Ao max P.7 mmHg Ao mean P.13 mmHg Ao V2 max: 96.3 cm/sec Ao V2 mean: 70.1 cm/sec Ao V2 VTI: 17.1 cm LV V1 max: 51.7 cm/sec LV V1 max P.07 mmHg LV V1 mean: 37.3 cm/sec LV V1 mean P.63 mmHg LV V1 VTI: 8.7 cm MV max P.9 mmHg MV mean P.85 mmHg MV V2 max: 111.0 cm/sec MV V2 mean: 60.3 cm/sec MV V2 VTI: 18.9 cm PA max P.2 mmHg PA V2 max: 89.7 cm/sec TR max P.8 mmHg TR max dina: 323.5 cm/sec TV max P.8 mmHg Other Measurements & Calculations Ao root area: 7.1 cm² SENG(I,D): 1.68 cm² SENG(V,D): 1.76 cm² EDV(Teich): 72.5 ml EF(sp-el): 50.0 % EF(Teich): 39.6 % ESV(Teich): 43.8 ml FS: 19.0 % LVOT area: 3.3 cm² MVA(VTI): 1.52 cm² SV(LVOT): 28.7 ml MD Ruchi Cochran 03/26/2025, 7: 45 PM Ordering Physician: Ginette Byrd Referring Physician: Kimberly Tariq Performed By: RUBI
[2025-03-26] MEDS ORDERED: VANCOMYCIN INJ 1.25 GM in SODIUM CHLORIDE 0.9% 250 ML IV SCH (20:00)
--- NOTE | 2025-03-26 20:56 | MRI Report ---
PROCEDURE: MRI Brain WO INDICATIONS: AMS, h/o a fib TECHNIQUE: Multisequence MRI of the brain was performed without intravenous contrast. COMPARISON: None. FINDINGS: Image quality: Diagnostic. CSF Spaces: Basal cisterns are patent. No extra-axial fluid collections. Ventricles are normal in size and shape. Brain: No intracranial mass effect or hemorrhage. Restricted diffusion in the right inferior occipital gyrus (9/30) with associated increased T2 signal. No hemorrhagic conversion on susceptibility weighted images. Scattered T2 flair hyperintense foci in the supratentorial white matter are small vessel ischemic changes. Brainstem appears normal. No chronic ischemic insults. Normal intravascular flow voids are present. Skull and face: Calvarium has normal marrow signal. Orbits appear normal. Sinuses: The mastoid air cells are clear. T2 hyperintense mucosal thickening in the floor the right maxillary sinus. IMPRESSION: Acute infarct in the right inferior occipital gyrus. No hemorrhagic conversion. Reviewed by: Duncan Burden MD on 03/26/2025 8:52 PM PDT Approved by: Duncan Burden MD on 03/26/2025 8:52 PM PDT Station ID: [id number]
[2025-03-26] MEDS: APIXABAN 5 MG TABLET PO SCH (21:42)
[2025-03-26] MEDS: INSULIN GLARGINE-YFGN 300 UNIT/3 ML PEN SUBQ SCH (21:46)
[2025-03-27 04:54] LABS: HCT - HEMATOCRIT 46.4 % (42.0-52.0); HGB - HEMOGLOBIN 15.1 g/dL (14.0-18.0); MEAN PLATELET VOLUME 10.2 fL (7.4-11.4); NRBC ABSOLUTE COUNT (AUTO) 0.00 x10^3/uL; NUCLEATED RED BLOOD CELLS AUTO 0.0 /100WBC; PLT - PLATELET COUNT 199 10^3/uL (130-450); RED CELL DISTRIBUTION WIDTH 13.3 % (12.0-15.0)
[2025-03-27 05:13] LABS: BUN - BLOOD UREA NITROGEN 24.0 mg/dL (6-20); CARBON DIOXIDE - CO2 25.0 mmol/L (21-32); CREATININE 0.8 mg/dL (0.6-1.3); GFR - MDRD 93.0 (>89)
[2025-03-27] MEDS: SENNA 8.6 MG TABLET PO SCH (09:04)
[2025-03-27] MEDS: MULTIVITAMIN W/MINERALS TABLET PO SCH (09:04)
[2025-03-27] MEDS: DOCUSATE SODIUM 250 MG CAPSULE PO SCH (09:05)
--- NOTE | 2025-03-27 13:27 | CT Report ---
PROCEDURE: CT Angio Head/Neck INDICATIONS: CVA TECHNIQUE: Helical axial CT of the head and neck was obtained during the arterial phase of a intravenous contrast injection utilizing an angiographic protocol. MPR and MIP reformats were utilized. COMPARISON: None. CONTRAST: Omni 300 80ml FINDINGS: Cerebral CT Angiogram: Internal carotid arteries: No acute findings. Intracranial ICA are patent with no significant stenosis. No occlusion. No aneurysm. Anterior cerebral arteries: Unremarkable. No significant stenosis. No occlusion. No aneurysm. Middle cerebral arteries: Unremarkable. No significant stenosis. No occlusion. No aneurysm. Posterior cerebral arteries: Unremarkable. No significant stenosis. No occlusion. No aneurysm. Basilar artery: Unremarkable. No significant stenosis. No occlusion. No aneurysm. Vertebral arteries: Unremarkable. No significant stenosis. No occlusion. No aneurysm. Dural venous sinuses: Unremarkable given phase of enhancement. Other: Arterial phase appearance of the brain parenchyma is unremarkable. Neck CT Angiogram: Internal carotid arteries: Unremarkable. No significant stenosis. No occlusion. No aneurysm. Common carotid arteries: Unremarkable. No significant stenosis. No occlusion. No aneurysm. External carotid arteries: Unremarkable. No occlusion. Vertebral arteries: Unremarkable. No significant stenosis. No occlusion. No aneurysm. Aortic Arch and Mediastinum: Partially visualized aortic arch unremarkable without evidence of aneurysm.Origins of the great vessels unremarkable. Other: Arterial phase soft tissues of the neck are unremarkable. Moderate bilateral pleural effusions. IMPRESSION: Unremarkable CT angiogram of the head and neck. No evidence of large vessel occlusion, aneurysm or vascular malformation Reviewed by: Jacques Cuellar MD on 03/27/2025 12:23 PM LORNA Approved by: Jacques Cuellar MD on 03/27/2025 12:23 PM AKYOVANI Station ID: [id number]
--- NOTE | 2025-03-27 13:31 | PROVIDER PROGRESS NOTE ---
Subjective Prog Note Date Prog Note Date: 03/27/25 Prog Note Time: 14:00 Subjective Pt reports feeling: Improved Subjective: Patient demonstrated marked improvement in his ability to recall the past events, he was AOx4. We had discussions about positive stroke findings and the way ahead. Also discussed him needing additional support and the potentiality of him being co-located with family in [place] to allow the patient to benefit from additional local family support. He currently has no family support on [facility] and this would benefit his situation greatly. Current Medications Current Medications Current Medications: Current Medications Generic Name Dose Route Start Last Admin Trade Name Freq PRN Reason Stop Dose Admin Acetaminophen 650 mg 03/25/25 19:41 Acetaminophen 325 Mg Tablet PO Q4HR PRN Pain 1 to 4, or Fever Albuterol/Ipratropium 3 ml 03/25/25 19:41 Ipratropium/Albuterol 3 Ml Neb INH Q4HR PRN Wheezing Apixaban 5 mg 03/26/25 21:00 03/27/25 09:04 Apixaban 5 Mg Tablet PO 5 mg BID REMEDIOS Administration Ceftriaxone Sodium 1 gm 03/26/25 09:00 03/27/25 09:04 Ceftriaxone 1 Gm Vial IVP 03/30/25 09:01 1 gm DAILY REMEDIOS Administration Docusate Sodium 250 - 500 mg 03/27/25 09:00 03/27/25 09:05 Docusate Sodium 250 Mg Capsule PO Not Given DAILY REMEDIOS Insulin Glargine-yfgn 10 unit 03/26/25 21:00 03/26/25 21:46 Insulin Glargine-Yfgn 300 Unit/3 Ml Pen SUBQ 10 unit QPM REMEDIOS Administration Insulin Human Lispro 1 - 5 unit 03/25/25 21:00 03/27/25 12:06 Insulin Lispro 300 Unit/3 Ml Pen SUBQ 1 unit 0800,1200,1700,2100 REMEDIOS Administration Protocol Multivitamins/Minerals 1 tab 03/27/25 08:00 03/27/25 09:04 Multivitamin W/Minerals Tablet PO 1 tab DAILYWM REMEDIOS Administration Ondansetron HCl 4 mg 03/25/25 19:41 Ondansetron 4 Mg/2 Ml Vial IVP Q6HR PRN Nausea / Vomiting Polyethylene Glycol 17 gm 03/27/25 09:00 03/27/25 09:04 Polyethylene Glycol 3350 17 Gm Packet PO 17 gm DAILY REMEDIOS Administration Senna 8.6 - 17.2 mg 03/27/25 09:00 03/27/25 09:04 Senna 8.6 Mg Tablet PO 8.6 mg DAILY REMEDIOS Administration Sodium Chloride 10 ml 03/25/25 19:41 Sodium Chloride Flush 0.9% 10 Ml Syringe IVP PRN PRN NEEDED PER PROVIDER ORDERS Sodium Chloride 10 ml 03/26/25 01:00 03/27/25 09:05 Sodium Chloride Flush 0.9% 10 Ml Syringe IVP 10 ml 0100,0900,1700 REMEDIOS Administration Objective Vital Signs/Intake & Output Vital Signs: Vital Signs x48h Temp Pulse Resp BP Pulse Ox 03/27/25 07:50 36.9 C 104 H 16 160/100 H 97 Intake & Output: Intake & Output 03/24/25 03/25/25 03/26/25 03/27/25 23:59 23:59 23:59 23:59 Intake Total 2750 / 2750 1950 / 1950 1490 / 1490 Output Total 700 / 700 300 / 300 Balance 2750 / 2750 1250 / 1250 1190 / 1190 Weight (kg) 70 kg Objective General Appearance: positive No acute distress and Alert Eyes Bilateral: positive Normal inspection, PERRL, EOMI, No lid inflammation, Conjunctivae nml and No scleral icterus ENT: positive ENT inspection nml, Pharynx nml and No signs of dehydration Neck: positive Nml inspection, Thyroid nml, No JVD and Trachea midline Respiratory: positive Chest non-tender, No respiratory distress and Rales (right basilar crackles) Cardiovascular: positive Regular rate & rhythm, No murmur and No gallop Skin: positive Color nml Neurologic/Psychiatric: positive Oriented x3, CN's nml (2-12), Motor nml and Mood/affect nml Lab Results 03/27/25 04:41 03/27/25 04:41 Other Labs: Lab Results x24hrs 03/27/25 03/27/25 03/26/25 Range/Units 07:51 04:41 20:30 WBC 12.1 H (4.8-10.8) x10^3/uL RBC 4.74 (4.70-6.10) 10^6/uL Hgb 15.1 (14.0-18.0) g/dL Hct 46.4 (42.0-52.0) % MCV 97.9 H (80.0-94.0) fL MCH 31.9 H (27.0-31.0) pg MCHC 32.5 (32.0-36.0) g/dL RDW 13.3 (12.0-15.0) % Plt Count 199 (130-450) 10^3/uL MPV 10.2 (7.4-11.4) fL Neut # (Auto) 9.3 H (1.5-6.6) 10^3/uL Lymph # (Auto) 1.1 L (1.5-3.5) 10^3/uL Bryan # (Auto) 1.4 H (0.0-1.0) 10^3/uL Eos # (Auto) 0.2 (0.0-0.7) 10^3/uL Baso # (Auto) 0.1 (0.0-0.1) 10^3/uL Absolute Nucleated RBC 0.00 x10^3/uL Nucleated RBC % 0.0 /100WBC Sodium 136 (135-145) mmol/L Potassium 3.5 (3.5-4.5) mmol/L Chloride 105 (101-111) mmol/L Carbon Dioxide 25 (21-32) mmol/L Anion Gap 6.0 (6-13) BUN 24 H (6-20) mg/dL Creatinine 0.8 (0.6-1.3) mg/dL Estimated GFR (MDRD) 93 (>89) Glucose 109 H (74-104) mg/dL POC Whole Bld Glucose 97 167 (70-100) mg/dL Calcium 8.6 (8.5-10.3) mg/dL 03/26/25 Range/Units 16:39 WBC (4.8-10.8) x10^3/uL RBC (4.70-6.10) 10^6/uL Hgb (14.0-18.0) g/dL Hct (42.0-52.0) % MCV (80.0-94.0) fL MCH (27.0-31.0) pg MCHC (32.0-36.0) g/dL RDW (12.0-15.0) % Plt Count (130-450) 10^3/uL MPV (7.4-11.4) fL Neut # (Auto) (1.5-6.6) 10^3/uL Lymph # (Auto) (1.5-3.5) 10^3/uL Bryan # (Auto) (0.0-1.0) 10^3/uL Eos # (Auto) (0.0-0.7) 10^3/uL Baso # (Auto) (0.0-0.1) 10^3/uL Absolute Nucleated RBC x10^3/uL Nucleated RBC % /100WBC Sodium (135-145) mmol/L Potassium (3.5-4.5) mmol/L Chloride (101-111) mmol/L Carbon Dioxide (21-32) mmol/L Anion Gap (6-13) BUN (6-20) mg/dL Creatinine (0.6-1.3) mg/dL Estimated GFR (MDRD) (>89) Glucose (74-104) mg/dL POC Whole Bld Glucose 167 (70-100) mg/dL Calcium (8.5-10.3) mg/dL Sepsis Event Note (H) Sepsis Criteria Sepsis Criteria: WBC count greater than 12,000 or less than 4000 Assessment/Plan Problem List (1) Stroke due to embolism: Impression: Patient underwent CVA workup due to new left sided neglect. MRI revealed acute infarct in the right inferior occipital gyrus, with no hemorrhagic conversion. This seems to be consistent with the patients HPI and clinical presentation. Currently withholding anti-coags due to the potential of hemorrhagic conversion. CTA will be used to look for vascular lesion. Neuro during PE reveals no focal neuro deficit. - Order CTA head to search for vascular lesion - Continue work up for CVA Qualifiers: Laterality of affected vessel: right (2) Altered mental status: Impression: Patient has experiencing failure to thrive compounded with dementia. Spoke with family yesterday and future planning included potential movement of the patient to be co-located with family in [place]. Today patient was talkative, alert and understanding to his current situation. We explained to the patient that he has had a recent stroke and PNA. Patient was educated on current health problems and care plan. He agreed to being co-located with his family after his stay at the hospital. We also conversed about medication compliance and [facility] - Continuously monitor mental status as part of his CVA work up. (3) CAP (community acquired pneumonia): Impression: Chest xray from 03/25/25 revealed right basilar opacity in addition to a WBC that correlates to an infection. PE reveals right sided basilar rales. WBC count is currently 12.1 down from 13.4 at the time of admission with favorable O2 saturation on RA. Treatments continue to show positive trends, currently on Rocephin 1g, Day #2. - Continue serial lab draws to trend WBCs - Continue treatment with Rocephin 1g IVP Daily for the next 5 more days for a total of 7 days. (4) Clavicle fracture: Impression: Conservative care. (5) History of atrial fibrillation: Impression: Long standing history of aFib. Patient was started back on Apixaban for thrombosis prophylaxis. (6) Failure to thrive in adult: Impression: Discussed with patient medication compliance since he has not filled his meds since October. Patient stated that [facility] grown [facility] because [facility] are not attentive to his issues from previous phone calls he placed with the [facility]. He [facility] the [facility] but he is unsure if he had submitted authorization within the [facility] system to reorder medications that he is currently prescribed. Also discussed the possibility of him being co-located with his family near [place] to allow for better support from family for the patients needs. See above.
--- NOTE | 2025-03-27 14:50 | PT Plan of Care ---
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 Found down at home , AMS and CAP. Please see medical record for PMH . Pt was reportedly indep at baseline and had CG 4hrs/day 2x/wk. Per chart review, family reporting pt has been falling more often including fall in Jan 2025 with L clavicle fx. Upon PT eval, met supine in bed A&Ox2. Denies pain and willing to participate, follows cues well. L neglect but able to turn head toward L and vision apparently intact. R trunk lean in all positions, requires modAx1 for EOB transfer and mod to maxA to obtain midline. After cueing and seated activity, STS with maxAx1 and FWW. Unable to maintain midline and unsafe with stepping in place. Unable to progress gait assessment today. Pt presenting with high fall risk, L inattention, R lateral trunk lean, and reduced insight into condition. Given overall presentation, pt may benefit from skilled PT in acute setting. When medically clear, PT rec dc to SNF to maximize functional indep. Goals Improve bed mobility to: Contact Guard Improve supine to sit to: Minimal Assist Improve sit to stand to: Minimal Assist Improve pivot transfer ability Minimal Assist to: Improve sit to supine to: Minimal Assist Improve gait ability to: Min A Assistive Device Used: Front Wheeled Walker Improve Sitting Balance to: Good Improve Standing Balance to: Fair PT Plan of Care Frequency 1-2x/day Duration Until discharge Discharge Recommendations Discharge Location Intermediate Facility DC Equipment Recommended Front wheeled walker Transport Needs at Discharge B.L.S Other BLS d/t R trunk lean, poor trunk control
--- OUTSIDE RECORDS SUMMARY | 2025-03-27 19:16 | EXTERNAL MEDICAL SUMMARY RPT | Continuity of Care Document ---
Author Organization [facility] Address [address] [place] [id number] Phone Problems date description facility 2025-02-17 21:44 Fracture of unspecif ied part of unspecified clavicle, initial encounter for closed fracture [facility] 2025-02-17 22:10 Fracture of unspecif ied part of unspecified clavicle, initial encounter for closed fracture [facility] 2025-02-18 09:15 Fracture of unspecif ied part of unspecified clavicle, initial encounter for closed fracture [facility] 2025-02-21 14:13 Pain in left shoulder [facility] 2025-02-21 14:13 Fracture of unspecif ied part of unspecified clavicle, initial encounter for closed fracture [facility] 2025-02-23 12:29 Pain in left shoulder [facility] 2025-03-25 19:14 Altered mental status, unspecif ied [facility] 2025-03-25 20:30 Altered mental status, unspecif ied [facility] 2025-03-25 20:56 Altered mental status, unspecif ied [facility] 2025-03-26 12:28 Type 2 diabetes mellitus withou t complications [facility] 2025-03-26 12:28 Pneumonia, unspecified organism [facility] 2025-03-26 12:28 Altered mental status, [facility]specif ied [facility] 12:28 [facility] to thrive [facility] 2025-03-26 12:28 Fracture of unspecif ied part of unspecified clavicle, initial encounter for closed fracture [facility] 2025-03-26 12:28 Personal history of other mental and behavioral disorders [facility] 2025-03-26 12:28 Personal history of other diseases of the circulatory system [facility] 2025-03-26 13:02 Type 2 diabetes mellitus withou t complications [facility] 2025-03-26 13:02 Pneumonia, unspecified organism [facility] 2025-03-26 13:02 Altered mental status, unspecif ied [facility] 2025-03-26 13:02 Adult failure to thrive [facility] 2025-03-26 13:02 Fracture of unspecif ied part of unspecified clavicle, initial encounter for closed fracture [facility] 2025-03-26 13:02 Personal history of other mental and behavioral disorders [facility] 2025-03-26 13:02 Personal history of other diseases of the circulatory system [facility] Results/Labs test date facility value unit notes Result panel 1 MUDS CUTOFF CONCENTRATIONS 2025-03-25 14:14 [facility] CUTOFF CONC BELOW: (missing) [facility] uses the PROFILE-V [employer] Drugs of Abuse Test System. It detects drug classes at the following cutoff concentrations: AMP Amphetamine (d-Amphetamine) 500 ng/mL BAR Barbiturates (Butalbital) 200 ng/mL BZO Benzodiazepines (Nordiazepam) 150 ng/mL BUP Buprenorphine (Buprenorphine) 10 ng/mL SLICK Cocaine (Benzoylecgonine) 150 ng/mL MAMP Methamphetamine (d-Methamphetamine) 500 ng/mL MTD Methadone (Methadone) 200 ng/mL OPI Opiates (Morphine) 100 ng/mL OXY Oxycodone (Oxycodone) 100 ng/mL PCP Phencyclidine (Phencyclidine) 25 ng/mL BUP Buprenorphine (Buprenorphine) 10 ng/mL THC Cannabinoids ([id number]) 50 ng/mL TCA Tricyclic Antidepressants (Desipramine) 300 ng/mL All drug screen results are unconfirmed. Results are to be used for medical (i.e. treatment) purposes only. Unconfirmed screening results must not be used for non-medical purposes (e.g., employment testing, legal testing). AMPHETAMINE SCREEN,URINE 2025-03-25 14:14 [facility] NEGATIVE (missing) (missing) BARBITURATE SCREEN,UR 2025-03-25 14[facility]14 [facility] (missing) BENZODIAZEPINES SCREEN, URINE 2025-03-25 14:14 [facility] NEGATIVE (missing) (missing) BUPRENORPHINE SCREEN, URINE 2025-03-25 14:14 [facility] NEGATIVE (missing) (missing) COCAINE SCREEN URINE 2025-03-25 14:14 [facility] NEGATIVE (missing) (missing) METHADONE SCREEN, URINE 2025-03-25 14:14 [facility] NEGATIVE (missing) (missing) METHAMPHETAMINES SCREEN, URINE 2025-03-25 14:14 [facility] NEGATIVE (missing) (missing) OPIATE SCREEN, URINE 2025-03-25 14:14 [facility] NEGATIVE (missing) (missing) OXYCODONE SCREEN, URINE 2025-03-25 14:14 [facility] NEGATIVE (missing) (missing) PHENCYCLIDINE SCREEN, URINE 2025-03-25 14:14 [facility] NEGATIVE (missing) (missing) THC CANNABINOID SCREEN, URINE 2025-03-25 14:14 [facility] NEGATIVE (missing) (missing) TRICYCLIC ANTIDEPRESSANT,URI NE 2025-03-25 14:14 [facility] NEGATIVE (missing) (missing) Result panel 2 GLUCOSE, URINE (UA) 2025-03-25 14:44 [facility] >=1000 mg/dl (missing) WBC,URINE 2025-03-25 14:44 [facility] 0-3 /hpf (missing) UROBILINOGEN,URIN E 2025-03-25:44 [facility] 0.2 (NORMAL) e.u./dl (missing) SPECIFIC GRAVITY,URINE 2025-03-25 14:44 [facility] 1.025 (missing) (missing) PROTEIN,URINE 2025-03-25 14:44 [facility] 100 mg/dl (missing) RBC,URINE 2025-03-25 14:44 [facility] 6-10 /hpf (missing) PH,URINE 2025-03-25 14:44 [facility] 6.0 ph (missing) KETONES,URINE (UA) 2025-03-25:44 [facility] 80 mg/dl (missing) CLARITY,URINE 2025-03-25 14:44 [facility] CLEAR (missing) (missing) URINE MICROSCOPIC INDICATED? 2025-03-25 14:44 [facility] INDICATED (missing) (missing) OCCULT BLOOD,URINE 2025-03-25 14:44 [facility] MODERATE (missing) (missing) LEUKOCYTE ESTERASE, URINE 2025-03-25 14:44 [facility] NEGATIVE (missing) (missing) NITRITE,URINE 2025-03-25 14:44 [facility] NEGATIVE (missing) (missing) BILIRUBIN,URINE 2025-03-25 14:44 [facility] NEGATIVE (missing) Bilirubin can be influenced by color interference. Please correlate positive results with clinical presentation SQUAMOUS EPITHELIAL CELL,UR 2025-03-25 14:44 [facility] NONE SEEN (missing) (missing) UR CULTURE IF IND 2025-03-25 14:44 [facility] NOT INDICATED (missing) (missing) BACTERIA,URINE 2025-03-25 14:44 [facility] None Seen /hpf (missing) COLOR,URINE 2025-03-25 14:44 [facility] YELLOW (missing) URINE CLEAN CATCH Result panel 3 ETOH - ETHANOL 2025-03-25 15:16 [facility] < 10.0 mg/dl Blood Alcohol Levels Level Sporadic Drinkers Chronic drinkers 100 mg/dL Legally intoxicated* Minimal signs 200-250 mg/dL Alertness lost, Effort needed to becoming lethargic maintain emotional and motor control 300-350 mg/dL Stupor to coma Drowsy and slow >500 mg/dL Possible Coma *The legal definition of intoxication varies. This assy is for medical decision making only. As of December 2022 testing method has changed, this may include reference ranges. NUCLEATED RED BLOOD CELLS AUTO 2025-03-25 15:16 [facility] 0.0 /100wbc (missing) BASOPHILS # (AUTO) 2025-03-25 15:16 [facility] 0.0 10 3/ul (missing) EOSINOPHILS # (AUTO) 2025-03-25 15:16 [facility] 0.0 10 3/ul (missing) NRBC ABSOLUTE COUNT (AUTO) 2025-03-25 15:16 [facility] 0.00 x10 3/ul (missing) LYMPHOCYTES # (AUTO) 2025-03-25 15:16 [facility] 0.4 10 3/ul (missing) MONOCYTES # (AUTO) 2025-03-25 15:16 [facility] 0.8 10 3/ul (missing) RBC MORPHOLOGY (MULTIPLE) 2025-03-25 15:16 [facility] 1+ MACROCYTOSIS (missin g) (missing) CREATININE 2025-03-25 15:16 [facility] 1.0 mg/dl As of December 2022 test ing method has changed, this may include reference ranges. BILIRUBIN,TOTAL 2025-03-25 15:16 [facility] 1.6 mg/dl As of December 2022 test ing method has changed, this may include reference ranges. ALBUMIN/GLOBULIN RATIO 2025-03-25 15:16 [facility] 1.8 (missin g) (missing) MAGNESIUM 2025-03-25 15:16 [facility] 1.9 mg/dl Slightly Hemolyzed: Results may be affected. As of December 2022 testing method has changed, this may include reference ranges. PLT - PLATELET COUNT 2025-03-25 15:16 [facility] 117 10 3/ul (missing) NEUTROPHILS # (AUTO) 2025-03-25 15:16 [facility] 12.0 10 3/ul (missing) MEAN PLATELET VOLUME 2025-03-25 15:16 [facility] 12.1 fl (missing) RED CELL DISTRIBUTION WIDTH 2025-03-25 15:16 [facility] 12.8 % (missing) WHITE BLOOD COUNT 2025-03-25 15:16 [facility] 13.4 x10 3/ul (missing) SODIUM 2025-03-25 15:16 [facility] 135 mmol/l (missing) ANION GAP 2025-03-25 15:16 [facility] 16.0 (missin g) (missing) ALKALINE PHOSPHATASE 2025-03-25 15:16 [facility] 164 iu/l As of December 2022 test ing method has changed, this may include reference ranges. HGB - HEMOGLOBIN 2025-03-25 15:16 [facility] 17.4 g/dl (missing) BUN - BLOOD UREA NITROGEN 2025-03-25 15:16 [facility] 19 mg/dl As of December 2022 test ing method has changed, this may include reference ranges. GLOBULIN 2025-03-25 15:16 [facility] 2.5 g/dl (missing) CARBON DIOXIDE - CO2 2025-03-25 15:16 [facility] 22 mmol/l As of December 2022 test ing method has changed, this may include reference ranges. CK- CREATINE KINASE 2025-03-25 15:16 [facility] 298 iu/l As of December 2022 test ing method has changed, this may include reference ranges. AST ASPARTATE AMINOTRANSFERASE 2025-03-25 15:16 [facility] 30 iu/l Slightly Hemolyzed: Results may be affected. As of December 2022 testing method has changed, this may include reference ranges. MEAN CORPUSCULAR HEMOGLOBIN 2025-03-25 15:16 [facility] 33.1 pg (missing) MEAN CORPUSCULAR HGB CONC 2025-03-25 15:16 [facility] 33.2 g/dl (missing) GLUCOSE 2025-03-25 15:16 [facility] 369 mg/dl As of December 2022 test ing method has changed, this may include reference ranges. ALBUMIN 2025-03-25 15:16 [facility] 4.5 g/dl As of December 2022 test ing method has changed, this may include reference ranges. POTASSIUM 2025-03-25 15:16 [facility] 4.5 mmol/l Slightly Hemolyzed: Results may be affected. As of December 2022 testing method has changed, this may include reference ranges. RED BLOOD COUNT 2025-03-25 15:16 [facility] 5.25 10 6/ul (missing) ALT ALANINE AMINOTRANSFERASE 2025-03-25 15:16 [facility] 50 iu/l As of December 2022 test ing method has changed, this may include reference ranges. HCT - HEMATOCRIT 2025-03-25 15:16 [facility] 52.4 % (missing) TOTAL PROTEIN 2025-03-25 15:16 [facility] 7.0 g/dl As of December 2022 test ing method has changed, this may include reference ranges. GFR - MDRD 2025-03-25 15:16 [facility] 72 (missin g) The IDMS-traceable MDRD Study Equation has been validated extensively in and populations between the ages of 18 and 70 with impaired kidney function (eGFR < 60 mL/min/1.73m2) and has shown good performance for patients with all common causes of kidney disease. Although this equation has not been validated for patients older than 70, an MDRD-derived eGFR may still be a useful tool for providers caring for patients older than 70. References: http://www.nkdep.nih.go v/lab-evaluation/gfr/cr eatinine-stand ardization, last updated August 2011. CALCIUM 2025-03-25 15:16 [facility] 9.9 mg/dl As of December 2022 test ing method has changed, this may include reference ranges. CHLORIDE 2025-03-25 15:16 [facility] 97 mmol/l As of December 2022 test ing method has changed, this may include reference ranges. MEAN CORPUSCULAR VOLUME 2025-03-25 15:16 [facility] 99.8 fl (missing) PLATELET ESTIMATE, MANUAL 2025-03-25 15:16 [facility] DECREASED (<130,000) (missin g) (missing) SLIDE REVIEW? 2025-03-25 15:16 [facility] Indicated (missin g) (missing) CULTURE, BLOOD #1 2025-03-25 15:16 [facility] NG1DNO GROWTH AFTER 1 DAY (missin g) (missing) CULTURE, BLOOD #1 2025-03-25 15:16 [facility] NG2DNO GROWTH AFTER 2 DAYS (missin g) (missing) PLATELET MORPHOLOGY 2025-03-25 15:16 [facility] RARE GIANT PLATELETS (missin g) (missing) Result panel 4 LACTIC ACID, VENOUS 2025-03-25 15:26 [facility] 3.8 mmol/l N Critical result LAC 3.8 mmol/L called to and read back by ANTONIETA Mcpherson RN/ED at 25-Mar-2025 15:52 by Sukhi. As of December 2022 testing method has changed, this may include reference ranges. Result panel 5 GLUCOSE, WHOLE BLOOD 2025-03-25 21:23 [facility] 355 (missing) (missing) Result panel 6 CULTURE, BLOOD #2 2025-03-25 23:20 [facility] NG1D NO GROWTH AFTER 1 DAY (missing) LEFT ARM Result panel 7 NUCLEATED RED BLOOD CELLS AUTO 2025-03-26 04:27 [facility] 0.0 /100wbc (missing) BASOPHILS # (AUTO) 2025-03-26 04:27 [facility] 0.0 10 3/ul (missing) EOSINOPHILS # (AUTO) 2025-03-26 04:27 [facility] 0.0 10 3/ul (missing) NRBC ABSOLUTE COUNT (AUTO) 2025-03-26 04: [facility] 0.00 x10 3/ul (missing) LYMPHOCYTES # (AUTO) 2025-03-26 04:27 [facility] 0.8 10 3/ul (missing) CREATININE 2025-03-26 04:27 [facility] 1.1 mg/dl As of December 2022 testing method has changed, this may include reference ranges. MONOCYTES # (AUTO) 2025-03-26 04:27 [facility] 1.8 10 3/ul (missing) MEAN PLATELET VOLUME 2025-03-26 04:27 [facility] 10.1 fl (missing) CHLORIDE 2025-03-26 04:27 [facility] 105 mmol/l As of December 2022 testing method has changed, this may include reference ranges. HEMOGLOBIN A1c% 2025-03-26 04: [facility] 11.0 % The [place] [employer] (ADA) has made the following recommendations: Monitoring HbA1c in Diabetic Patients: A1c (NGSP%) Goal <8 Less Stringent Goal <7 General Goal <6.5 More Stringent Goal Diagnosis of Diabetes: A1c (NGSP%) Goal >6.5 Diabetic 5.7-6.4 Pre-Diabetic <5.7 Non-Diabetic WHITE BLOOD COUNT 2025-03-26 04:27 [facility] 12.5 x10 3/ul (missing) RED CELL DISTRIBUTION WIDTH 2025-03-26 04: [facility] 13.2 % (missing) SODIUM 2025-03-26 04:27 [facility] 139 mmol/l (missing) HGB - HEMOGLOBIN 2025-03-26 04: [facility] 15.0 g/dl (missing) PLT - PLATELET COUNT 2025-03-26 04: [facility] 203 10 3/ul (missing) BUN - BLOOD UREA NITROGEN 2025-03-26 04: [facility] 22 mg/dl As of December 2022 testing method has changed, this may include reference ranges. CARBON DIOXIDE - CO2 2025-03-26 04: [facility] 25 mmol/l As of December 2022 testing method has changed, this may include reference ranges. ESTIMATED AVERAGE GLUCOSE 2025-03-26 04: [facility] 269 mg/dl (missing) GLUCOSE 2025-03-26: [facility] 286 mg/dl As of December 2022 testing method has changed, this may include reference ranges. MEAN CORPUSCULAR HEMOGLOBIN 2025-03-26 04: [facility] 33.5 pg (missing) MEAN CORPUSCULAR HGB CONC 2025-03-26 04: [facility] 33.9 g/dl (missing) POTASSIUM 2025-03-26 04: [facility] 4.3 mmol/l As of December 2022 testing method has changed, this may include reference ranges. RED BLOOD COUNT 2025-03-26 04: [facility] 4.48 10 6/ul (missing) HCT - HEMATOCRIT 2025-03-26 04: [facility] 44.2 % (missing) GFR - MDRD 2025-03-26 04: [facility] 65 (missing) The IDMS-traceable MDRD Study Equation has been validated extensively in and populations between the ages of 18 and 70 with impaired kidney function (eGFR < 60 mL/min/1.73m2) and has shown good performance for patients with all common causes of kidney disease. Although this equation has not been validated for patients older than 70, an MDRD-derived eGFR may still be a useful tool for providers caring for patients older than 70. References: http://www.nkdep .nih.gov/lab-soo luation/gfr/crea tinine-stand ardization, last updated August 2011. ANION GAP 2025-03-26 04:27 [facility] 9.0 (missing) (missing) CALCIUM 2025-03-26 04:27 [facility] 9.2 mg/dl As of December 2022 testing method has changed, this may include reference ranges. NEUTROPHILS # (AUTO) 2025-03-26 04:27 [facility] 9.8 10 3/ul (missing) MEAN CORPUSCULAR VOLUME 2025-03-26 04:27 [facility] 98.7 fl (missing) SLIDE REVIEW? 2025-03-26 04:27 [facility] Indicated (missing) (missing) PLATELET ESTIMATE, MANUAL 2025-03-26 04:27 [facility] NORMAL (130-450,000) (missing) (missing) PLATELET MORPHOLOGY 2025-03-26 04:27 [facility] NORMAL APPEARANCE (missing) (missing) RBC MORPHOLOGY (MULTIPLE) 2025-03-26 04:27 [facility] NORMAL APPEARANCE (missing) (missing) WBC MORPHOLOGY (MULTIPLE) 2025-03-26 04:27 [facility] NORMAL APPEARANCE (missing) (missing) Result panel 8 GLUCOSE, WHOLE BLOOD 2025-03-26 08:03 [facility] 252 (missing) (missing) Result panel 9 GLUCOSE, WHOLE BLOOD 2025-03-26 11:35 [facility] 251 (missing) (missing) Result panel 10 GLUCOSE, WHOLE BLOOD 2025-03-26 16:39 [facility] 167 (missing) (missing) Result panel 11 GLUCOSE, WHOLE BLOOD 2025-03-26 20:30 [facility] 167 (missing) RN notified. Result panel 12 NUCLEATED RED BLOOD CELLS AUTO 2025-03-27 04:41 [facility] 0.0 /100wbc (missing) NRBC ABSOLUTE COUNT (AUTO) 2025-03-27 04:41 [facility] 0.00 x10 3/ul (missing) BASOPHILS # (AUTO) 2025-03-27 04:41 [facility] 0.1 10 3/ul (missing) EOSINOPHILS # (AUTO) 2025-03-27 04:41 [facility] 0.2 10 3/ul (missing) CREATININE 2025-03-27 04:41 [facility] 0.8 mg/dl As of December 2022 testing method has changed, this may include reference ranges. LYMPHOCYTES # (AUTO) 2025-03-27 04:41 [facility] 1.1 10 3/ul (missing) MONOCYTES # (AUTO) 2025-03-27 04:41 [facility] 1.4 10 3/ul (missing) MEAN PLATELET VOLUME 2025-03-27 04:41 [facility] 10.2 fl (missing) CHLORIDE 2025-03-27 04:41 [facility] 105 mmol/l As of December 2022 testing method has changed, this may include reference ranges. GLUCOSE 2025-03-27 04:41 [facility] 109 mg/dl As of December 2022 testing method has changed, this may include reference ranges. WHITE BLOOD COUNT 2025-03-27 04:41 [facility] 12.1 x10 3/ul (missing) RED CELL DISTRIBUTION WIDTH 2025-03-27 04:41 [facility] 13.3 % (mi ssing) SODIUM 2025-03-27 04:41 [facility] 136 mmol/l (missing) HGB - HEMOGLOBIN 2025-03-27 04:41 [facility] 15.1 g /dl (missing) PLT - PLATELET COUNT 2025-03-27 04:41 [facility] 199 10 3/ul (missing) BUN - BLOOD UREA NITROGEN 2025-03-27 04:41 [facility] 24 mg/dl As of Dec testing method has changed, this may include reference ranges. CARBON DIOXIDE - CO2 2025-03-27 04:41 [facility] 25 mmol/l As of December 2022 testing method has changed, this may include reference ranges. POTASSIUM 2025-03-27 04:41 [facility] 3.5 mmol/l As of December 2022 testing method has changed, this may include reference ranges. MEAN CORPUSCULAR HEMOGLOBIN 2025-03-27 04:41 [facility] 31.9 pg (missing) MEAN CORPUSCULAR HGB CONC 2025-03-27 04:41 [facility] 32.5 g/dl (missing) RED BLOOD COUNT 2025-03-27 04:41 [facility] 4.74 10 6/ul (missing) HCT - HEMATOCRIT 2025-03-27 04:41 [facility] 46.4 % (missing) ANION GAP 2025-03-27 04:41 [facility] 6.0 (missing ) (missing) CALCIUM 2025-03-27 04:41 [facility] 8.6 mg/dl As of December 2022 testing method has changed, this may include reference ranges. NEUTROPHILS # (AUTO) 2025-03-27 04:41 [facility] 9.3 10 3/ul (missing) GFR - MDRD 2025-03-27 04:41 [facility] 93 (angela g) The IDMS-traceable MDRD Study Equation has been validated extensively in and populations between the ages of 18 and 70 with impaired kidney function (eGFR < 60 mL/min/1.73m2) and has shown good performance for patients with all common causes of kidney disease. Although this equation has not been validated for patients older than 70, an MDRD-derived eGFR may still be a useful tool for providers caring for patients older than 70. References: http://www.nkdep.n ih.gov/lab-evaluat ion/gfr/creatinine -stand ardization, last updated August 2011. MEAN CORPUSCULAR VOLUME 2025-03-27 04:41 [facility] 97.9 fl (missing) Result panel 13 GLUCOSE, WHOLE BLOOD 2025-03-27 07:51 [facility] 97 (missing) (missing) Result panel 14 GLUCOSE, WHOLE BLOOD 2025-03-27 16:52 [facility] 181 (missing) (missing) Social History date description facility
--- OUTSIDE RECORDS SUMMARY | 2025-03-27 19:18 | EXTERNAL MEDICAL SUMMARY RPT | Continuity of Care Document ---
Author Organization [facility] Address [address] [place] [id number] Phone Problems date description facility 2025-02-17 21:44 Fracture of unspecif ied part of unspecified clavicle, initial encounter for closed fracture [facility] 2025-02-17 22:10 Fracture of unspecif ied part of unspecified clavicle, initial encounter for closed fracture [facility] 2025-02-18 09:15 Fracture of unspecif ied part of unspecified clavicle, initial encounter for closed fracture [facility] 2025-02-21 14:13 Pain in left shoulder [facility] 2025-02-21 14:13 Fracture of unspecif ied part of unspecified clavicle, initial encounter for closed fracture [facility] 2025-02-23 12:29 Pain in left shoulder [facility] 2025-03-25 19:14 Altered mental status, unspecif ied [facility] 2025-03-25 20:30 Altered mental status, unspecif ied [facility] 2025-03-25 20:56 Altered mental status, unspecif ied [facility] 2025-03-26 12:28 Type 2 diabetes mellitus withou t complications [facility] 2025-03-26 12:28 Pneumonia, unspecified organism [facility] 2025-03-26 12:28 Altered mental status, [facility]specif ied [facility]25-03-26 12:28 [facility] failure to [facility] 2025-03-26 12:28 Fracture of unspecif ied part of unspecified clavicle, initial encounter for closed fracture [facility] 2025-03-26 12:28 Personal history of other mental and behavioral disorders [facility] 2025-03-26 12:28 Personal history of other diseases of the circulatory system [facility] 2025-03-26 13:02 Type 2 diabetes mellitus withou t complications [facility] 2025-03-26 13:02 Pneumonia, unspecified organism [facility] 2025-03-26 13:02 Altered mental status, unspecif ied [facility] 2025-03-26 13:02 Adult failure to thrive [facility] 2025-03-26 13:02 Fracture of unspecif ied part of unspecified clavicle, initial encounter for closed fracture [facility] 2025-03-26 13:02 Personal history of other mental and behavioral disorders [facility] 2025-03-26 13:02 Personal history of other diseases of the circulatory system [facility] Results/Labs test date facility value unit notes Result panel 1 MUDS CUTOFF CONCENTRATIONS 2025-03-25 14:14 [facility] CUTOFF CONC BELOW: (missing) [facility] uses the PROFILE-V [place] Drugs of Abuse Test System. It detects [...] BUP Buprenorphine (Buprenorphine) 10 ng/mL THC Cannabinoids ([id number]) 50 ng/mL TCA Tricyclic Antidepressants (Desipramine) 300 ng/mL All drug screen results are unconfirmed. Results are to be used for medical (i.e. treatment) purposes only. Unconfirmed screening results must not be used for non-medical purposes (e.g., employment testing, legal testing). AMPHETAMINE SCREEN,URINE 2025-03-25 14:14 [facility] NEGATIVE (missing) (missing) BARBITURATE SCREEN,UR 2025-03-25 14:14 [facility] (missing) (missing) BENZODIAZEPINES SCREEN, URINE 2025-03-25 [...] (missing) NRBC ABSOLUTE COUNT (AUTO) 2025-03-25 15:16 [facility] 0.00 x10 3/ul (missing) LYMPHOCYTES # (AUTO) 2025-03-25 15:16 [facility] [employer] 0.4 10 3/ul (missing) MONOCYTES # (AUTO) 2025-03-25 15:16 [employer] 0.8 10 3/ul (missing) RBC MORPHOLOGY (MULTIPLE) 2025-03-25 15:16 [place] 1+ MACROCYTOSIS (missin g) (missing) CREATININE 2025-03-25 15:16 [facility] [employer] 1.0 mg/dl As of December 2022 test ing method has changed, this may include reference ranges. BILIRUBIN,TOTAL 2025-03-25 15:16 [place] 1.6 mg/dl As of December 2022 test ing method has changed, this may include reference ranges. ALBUMIN/GLOBULIN RATIO 2025-03-25 15:16 [place] 1.8 (missin g) (missing) MAGNESIUM 2025-03-25 15:16 [place] 1.9 mg/dl Slightly Hemolyzed: Results may be affected. As of December 2022 testing method has changed, this may include reference ranges. PLT - PLATELET COUNT 2025-03-25 15:16 [place] 117 10 3/ul (missing) NEUTROPHILS # (AUTO) 2025-03-25 15:16 [place] 12.0 10 3/ul (missing) MEAN PLATELET VOLUME 2025-03-25 15:16 [place] 12.1 fl (missing) RED CELL DISTRIBUTION WIDTH 2025-03-25 15:16 [place] 12.8 % (missing) WHITE BLOOD COUNT 2025-03-25 15:16 [place] 13.4 x10 3/ul (missing) SODIUM 2025-03-25 15:16 [place] 135 mmol/l (missing) ANION GAP 2025-03-25 15:16 [place] 16.0 (missin g) (missing) ALKALINE PHOSPHATASE 2025-03-25 15:16 [place] 164 iu/l As of December 2022 test ing method has changed, this may include reference ranges. HGB - HEMOGLOBIN 2025-03-25 15:16 [place] 17.4 g/dl (missing) BUN - BLOOD UREA NITROGEN 2025-03-25 15:16 [place] 19 mg/dl As of December 2022 test ing method has changed, this may include reference ranges. GLOBULIN 2025-03-25 15:16 [place] 2.5 g/dl (missing) CARBON DIOXIDE - CO2 2025-03-25 15:16 [place] 22 mmol/l As of December 2022 test ing method has changed, this may include reference ranges. CK- CREATINE KINASE 2025-03-25 15:16 [place] 298 iu/l As of December 2022 test ing method has changed, this may include reference ranges. AST ASPARTATE AMINOTRANSFERASE 2025-03-25 15:16 [place] 30 iu/l Slightly Hemolyzed: Results may be affected. As of December 2022 testing method has changed, this may include reference ranges. MEAN CORPUSCULAR HEMOGLOBIN 2025-03-25 15:16 [place] 33.1 pg (missing) MEAN CORPUSCULAR HGB CONC 2025-03-25 15:16 [place] 33.2 g/dl (missing) GLUCOSE 2025-03-25 15:16 [place] 369 mg/dl As of December 2022 test ing method has changed, this may include reference ranges. ALBUMIN 2025-03-25 15:16 [place] 4.5 g/dl As of December 2022 test ing method has changed, this may include reference ranges. POTASSIUM 2025-03-25 15:16 [place] 4.5 mmol/l Slightly Hemolyzed: Results may be affected. As of December 2022 testing method has changed, this may include reference ranges. RED BLOOD COUNT 2025-03-25 15:16 [place] 5.25 10 6/ul (missing) ALT ALANINE AMINOTRANSFERASE 2025-03-25 15:16 [place] 50 iu/l As of December 2022 test ing method has changed, this may include reference ranges. HCT - HEMATOCRIT 2025-03-25 15:16 [place] 52.4 % (missing) TOTAL PROTEIN 2025-03-25 15:16 [place] 7.0 g/dl As of December 2022 test ing method has changed, this may include reference ranges. GFR - MDRD 2025-03-25 15:16 [place] 72 (missin g) The IDMS-traceable MDRD Study [...] last updated August 2011. CALCIUM 2025-03-25 15:16 [place] 9.9 mg/dl As of December 2022 test ing method has changed, this may include reference ranges. CHLORIDE 2025-03-25 15:16 [place] 97 mmol/l As of December 2022 test ing method has changed, this may include reference ranges. MEAN CORPUSCULAR VOLUME 2025-03-25 15:16 [place] 99.8 fl (missing) PLATELET ESTIMATE, MANUAL 2025-03-25 15:16 [place] DECREASED (<130,000) (missin g) (missing) SLIDE REVIEW? 2025-03-25 15:16 [place] [facility] Indicated (missin g) (missing) CULTURE, BLOOD #1 2025-03-25 15:16 [place] NG1DNO GROWTH AFTER 1 DAY (missin g) (missing) CULTURE, BLOOD #1 2025-03-25 15:16 [place] NG2DNO GROWTH AFTER 2 DAYS (missin g) (missing) PLATELET MORPHOLOGY 2025-03-25 15:16 [place] RARE GIANT PLATELETS (missin g) (missing) Result panel 4 LACTIC ACID, VENOUS 2025-03-25 15:26 [place] 3.8 mmol/l N Critical result LAC 3.8 mmol/L called to and read back by ANTONIETA Mcpherson RN/ED at 25-Mar-2025 15:52 by Sukhi. As of December 2022 testing method has changed, this may include reference ranges. Result panel 5 GLUCOSE, WHOLE BLOOD 2025-03-25 21:23 [place] 355 (missing) (missing) Result panel 6 CULTURE, BLOOD #2 2025-03-25 23:20 [place] NG1D NO GROWTH AFTER 1 DAY (missing) LEFT ARM Result panel 7 NUCLEATED RED BLOOD CELLS AUTO 2025-03-26 04:27 [place] 0.0 /100wbc (missing) BASOPHILS # (AUTO) 2025-03-26 04:27 [place] 0.0 10 3/ul (missing) EOSINOPHILS # (AUTO) 2025-03-26 04:27 [place] 0.0 10 3/ul (missing) NRBC ABSOLUTE COUNT (AUTO) 2025-03-26 04: [place] 0.00 x10 3/ul (missing) LYMPHOCYTES # (AUTO) 2025-03-26 04:27 [place] 0.8 10 3/ul (missing) CREATININE 2025-03-26 04:27 [place] 1.1 mg/dl As of December 2022 testing method has changed, this may include reference ranges. MONOCYTES # (AUTO) 2025-03-26 04:27 [place] 1.8 10 3/ul (missing) MEAN PLATELET VOLUME 2025-03-26 04:27 [place] 10.1 fl (missing) CHLORIDE 2025-03-26 04:27 [place] 105 mmol/l As of December 2022 testing method has changed, this may include reference ranges. HEMOGLOBIN A1c% 2025-03-26 04: [place] 11.0 % The [place] [employer] (ADA) has made the following recommendations: Monitoring HbA1c in Diabetic Patients: A1c (NGSP%) Goal <8 Less Stringent Goal <7 General Goal <6.5 More Stringent Goal Diagnosis of Diabetes: A1c (NGSP%) Goal >6.5 Diabetic 5.7-6.4 Pre-Diabetic <5.7 Non-Diabetic WHITE BLOOD COUNT 2025-03-26 04:27 [place] 12.5 x10 3/ul (missing) RED CELL DISTRIBUTION WIDTH 2025-03-26 04: [place] 13.2 % (missing) SODIUM 2025-03-26 04:27 [place] 139 mmol/l (missing) HGB - HEMOGLOBIN 2025-03-26 04: [facility] [employer] 15.0 g/dl (missing) PLT - PLATELET COUNT 2025-03-26 04: [place] 203 10 3/ul (missing) BUN - BLOOD UREA NITROGEN 2025-03-26 04: [facility] [employer] [facility] 22 mg/dl As of December 2022 testing method has changed, this may include reference ranges. CARBON DIOXIDE - CO2 2025-03-26 04: [place] 25 mmol/l As of December 2022 testing method has changed, this may include reference ranges. ESTIMATED AVERAGE GLUCOSE 2025-03-26 04: [place] 269 mg/dl (missing) GLUCOSE 2025-03-26: [place] 286 mg/dl As of December 2022 testing method has changed, this may include reference ranges. MEAN CORPUSCULAR HEMOGLOBIN 2025-03-26 04: [place] 33.5 pg (missing) MEAN CORPUSCULAR HGB CONC 2025-03-26 04: [place] 33.9 g/dl (missing) POTASSIUM 2025-03-26 04: [place] 4.3 mmol/l As of December 2022 testing method has changed, this may include reference ranges. RED BLOOD COUNT 2025-03-26 04: [place] 4.48 10 6/ul (missing) HCT - HEMATOCRIT 2025-03-26 04: [place] 44.2 % (missing) GFR - MDRD 2025-03-26 04: [place] 65 (missing) The IDMS-traceable MDRD Study Equation [...] updated August 2011. ANION GAP 2025-03-26 04:27 [facility] 9.0 (missing) (missing) CALCIUM 2025-03-26 04:27 [facility] 9.2 mg/dl As of December 2022 testing method has changed, this may include reference ranges. NEUTROPHILS # (AUTO) 2025-03-26 04:27 [facility] 9.8 10 3/ul (missing) MEAN CORPUSCULAR VOLUME 2025-03-26 04:27 [facility] 98.7 fl (missing) SLIDE REVIEW? 2025-03-26 04:27 [facility] Indicated (missing) (missing) PLATELET ESTIMATE, MANUAL 2025-03-26 04:27 [facility] NORMAL (130-450,000) (missing) (missing) PLATELET MORPHOLOGY 2025-03-26 04:27 [facility] NORMAL APPEARANCE (missing) (missing) RBC MORPHOLOGY (MULTIPLE) 2025-03-26 04:27 [facility] NORMAL APPEARANCE (missing) (missing) WBC MORPHOLOGY (MULTIPLE) 2025-03-26 04:27 [facility] NORMAL APPEARANCE (missing) (missing) Result panel [...] NUCLEATED RED BLOOD CELLS AUTO 2025-03-27 04:41 [facility] 0.0 /100wbc (missing) NRBC ABSOLUTE COUNT (AUTO) 2025-03-27 04:41 [facility] 0.00 x10 3/ul (missing) BASOPHILS # (AUTO) 2025-03-27 04:41 [facility] 0.1 10 3/ul (missing) EOSINOPHILS # (AUTO) 2025-03-27 04:41 [facility] 0.2 10 3/ul (missing) CREATININE 2025-03-27 04:41 [facility] 0.8 mg/dl As of December 2022 testing method has changed, this may include reference ranges. LYMPHOCYTES # (AUTO) 2025-03-27 04:41 [place] 1.1 10 3/ul (missing) MONOCYTES # (AUTO) 2025-03-27 04:41 [place] 1.4 10 3/ul (missing) MEAN PLATELET VOLUME 2025-03-27 04:41 [place] 10.2 fl (missing) CHLORIDE 2025-03-27 04:41 [place] 105 mmol/l As of December 2022 testing method has changed, this may include reference ranges. GLUCOSE 2025-03-27 04:41 [place] 109 mg/dl As of December 2022 testing method has changed, this may include reference ranges. WHITE BLOOD COUNT 2025-03-27 04:41 [place] 12.1 x10 3/ul (missing) RED CELL DISTRIBUTION WIDTH 2025-03-27 04:41 [place] 13.3 % (mi ssing) SODIUM 2025-03-27 04:41 [place] 136 mmol/l (missing) HGB - HEMOGLOBIN 2025-03-27 04:41 [place] 15.1 g /dl (missing) PLT - PLATELET COUNT 2025-03-27 04:41 [place] 199 10 3/ul (missing) BUN - BLOOD UREA NITROGEN 2025-03-27 04:41 [place] 24 mg/dl As of Dec testing method has changed, this may include reference ranges. CARBON DIOXIDE - CO2 2025-03-27 04:41 [place] 25 mmol/l As of December 2022 testing method has changed, this may include reference ranges. POTASSIUM 2025-03-27 04:41 [place] 3.5 mmol/l As of December 2022 testing method has changed, this may include reference ranges. MEAN CORPUSCULAR HEMOGLOBIN 2025-03-27 04:41 [place] 31.9 pg (missing) MEAN CORPUSCULAR HGB CONC 2025-03-27 04:41 [place] 32.5 g/dl (missing) RED BLOOD COUNT 2025-03-27 04:41 [place] 4.74 10 6/ul (missing) HCT - HEMATOCRIT 2025-03-27 04:41 [place] 46.4 % (missing) ANION GAP 2025-03-27 04:41 [place] 6.0 (missing ) (missing) CALCIUM 2025-03-27 04:41 [place] [facility] 8.6 mg/dl As of December 2022 testing method has changed, this may include reference ranges. NEUTROPHILS # (AUTO) 2025-03-27 04:41 [place] [facility] 9.3 10 3/ul (missing) GFR - MDRD 2025-03-27 04:41 [place] 93 (angela g) The IDMS-traceable MDRD Study [...] August 2011. MEAN CORPUSCULAR VOLUME 2025-03-27 04:41 [place] 97.9 fl (missing) Result panel 13 GLUCOSE, WHOLE BLOOD 2025-03-27 07:51 [place] 97 (missing) (missing) Result panel 14 GLUCOSE, WHOLE BLOOD 2025-03-27 16:52 [place] [facility] 181 (missing) (missing) Social History date description facility
[2025-03-28 06:40] LABS: HCT - HEMATOCRIT 46.6 % (42.0-52.0); HGB - HEMOGLOBIN 15.8 g/dL (14.0-18.0); MEAN PLATELET VOLUME 10.0 fL (7.4-11.4); NRBC ABSOLUTE COUNT (AUTO) 0.00 x10^3/uL; NUCLEATED RED BLOOD CELLS AUTO 0.0 /100WBC; PLT - PLATELET COUNT 205 10^3/uL (130-450); RED CELL DISTRIBUTION WIDTH 13.2 % (12.0-15.0)
[2025-03-28 06:57] LABS: BUN - BLOOD UREA NITROGEN 17.0 mg/dL (6-20); CARBON DIOXIDE - CO2 25.0 mmol/L (21-32); CREATININE 0.8 mg/dL (0.6-1.3); GFR - MDRD 93.0 (>89)
[2025-03-28] MEDS: ACETAMINOPHEN 325 MG TABLET PO PRN (07:24)
--- NOTE | 2025-03-28 10:24 | PROVIDER PROGRESS NOTE ---
<Statement entered by Omi Luna DNP - 03/28/25 14:40> Patient was seen and examined by me with a separate encounter after being seen by ROLANDO student. I reviewed the student's documentation including patient history, physical examination, laboratory, imaging, clinical assessment and treatment plan. I have discussed the management of the patient with the student, and with the patient. There are no changes. 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 MRI shows evidence of infarct, without hemorrhagic conversion. He has been started on anticoagulant. Medically ready for discharge today, needs SNF Subjective Prog Note Date Prog Note Date: 03/28/25 Prog Note Time: 12:33 Subjective Pt reports feeling: No change Subjective: Patient demonstrated marked improvement in his ability to recall the past events, he was AOx4. We had discussions about results of his most recent CTA that was negative for any pertinent findings and the way ahead. He stated that his family would be in to visit today or tomorrow, SW is currently working on SNF placement in [place] this AM. Patient is medically cleared and is awaiting discharge pending SNF placement. Current Medications Current Medications Current Medications: Current Medications Generic Name Dose Route Start Last Admin Trade Name Freq PRN Reason Stop Dose Admin Acetaminophen 650 mg 03/25/25 19:41 03/28/25 07:24 Acetaminophen 325 Mg Tablet PO 650 mg Q4HR PRN Administration Pain 1 to 4, or Fever Albuterol/Ipratropium 3 ml 03/25/25 19:41 Ipratropium/Albuterol 3 Ml Neb INH Q4HR PRN Wheezing Apixaban 5 mg 03/26/25 21:00 03/28/25 08:16 Apixaban 5 Mg Tablet PO 5 mg BID REMEDIOS Administration Ceftriaxone Sodium 1 gm 03/26/25 09:00 03/28/25 08:16 Ceftriaxone 1 Gm Vial IVP 03/30/25 09:01 1 gm DAILY REMEDIOS Administration Docusate Sodium 250 - 500 mg 03/27/25 09:00 03/28/25 08:17 Docusate Sodium 250 Mg Capsule PO 250 mg DAILY REMEDIOS Administration Hydroxyzine Pamoate 25 mg 03/27/25 21:08 03/27/25 21:53 Hydroxyzine Pamoate 25 Mg Capsule PO 25 mg QPM PRN Administration Insomnia Insulin Glargine-yfgn 10 unit 03/26/25 21:00 03/27/25 21:53 Insulin Glargine-Yfgn 300 Unit/3 Ml Pen SUBQ 10 unit QPM REMEDIOS Administration Insulin Human Lispro 1 - 5 unit 03/25/25 21:00 03/28/25 08:16 Insulin Lispro 300 Unit/3 Ml Pen SUBQ 1 unit 0800,1200,1700,2100 REMEDIOS Administration Protocol Multivitamins/Minerals 1 tab 03/27/25 08:00 03/28/25 08:16 Multivitamin W/Minerals Tablet PO 1 tab DAILYWM REMEDIOS Administration Ondansetron HCl 4 mg 03/25/25 19:41 Ondansetron 4 Mg/2 Ml Vial IVP Q6HR PRN Nausea / Vomiting Polyethylene Glycol 17 gm 03/27/25 09:00 03/28/25 08:16 Polyethylene Glycol 3350 17 Gm Packet PO 17 gm DAILY REMEDIOS Administration Senna 8.6 - 17.2 mg 03/27/25 09:00 03/28/25 08:16 Senna 8.6 Mg Tablet PO 8.6 mg DAILY REMEDIOS Administration Sodium Chloride 10 ml 03/25/25 19:41 Sodium Chloride Flush 0.9% 10 Ml Syringe IVP PRN PRN NEEDED PER PROVIDER ORDERS Sodium Chloride 10 ml 03/26/25 01:00 03/28/25 08:17 Sodium Chloride Flush 0.9% 10 Ml Syringe IVP 10 ml 0100,0900,1700 REMEDIOS Administration Objective Vital Signs/Intake & Output Vital Signs: Vital Signs x48h Temp Pulse Resp BP BP Pulse Ox 03/28/25 07:58 37 C 63 16 152/100 H 98 03/28/25 02:51 36.6 C 77 16 158/93 H 98 Intake & Output: Intake & Output 03/25/25 03/26/25 03/27/25 03/28/25 23:59 23:59 23:59 23:59 Intake Total 2750 / 2750 1950 / 1950 2380 / 2380 990 / 990 Output Total 700 / 700 900 / 900 725 / 725 Balance 2750 / 2750 1250 / 1250 1480 / 1480 265 / 265 Weight (kg) 70 kg Objective General Appearance: positive No acute distress and Alert Eyes Bilateral: positive Normal inspection, PERRL, EOMI, No lid inflammation, Conjunctivae nml and No scleral icterus ENT: positive ENT inspection nml, Pharynx nml and No signs of dehydration Neck: positive Nml inspection, Thyroid nml, No JVD and Trachea midline Respiratory: positive Chest non-tender, No respiratory distress and Breath sounds nml Cardiovascular: positive No murmur, No gallop and Irregularly irregular Abdomen: positive Non-tender, No organomegaly, Nml bowel sounds and No distention Skin: positive Color nml, No rash, Warm and Dry Extremities: positive Non-tender and Nml appearance Neurologic/Psychiatric: positive Oriented x3, CN's nml (2-12), Motor nml, Sensation nml and Mood/affect nml Lab Results 03/28/25 06:31 03/28/25 06:31 Other Labs: Lab Results x24hrs 03/28/25 03/28/25 03/27/25 Range/Units 07:46 06:31 21:48 WBC 9.2 (4.8-10.8) x10^3/uL RBC 4.79 (4.70-6.10) 10^6/uL Hgb 15.8 (14.0-18.0) g/dL Hct 46.6 (42.0-52.0) % MCV 97.3 H (80.0-94.0) fL MCH 33.0 H (27.0-31.0) pg MCHC 33.9 (32.0-36.0) g/dL RDW 13.2 (12.0-15.0) % Plt Count 205 (130-450) 10^3/uL MPV 10.0 (7.4-11.4) fL Neut # (Auto) 6.9 H (1.5-6.6) 10^3/uL Lymph # (Auto) 1.0 L (1.5-3.5) 10^3/uL [place]aines # (Auto) 1.0 (0.0-1.0) 10^3/uL Eos # (Auto) 0.3 (0.0-0.7) 10^3/uL Baso # (Auto) 0.1 (0.0-0.1) 10^3/uL Absolute Nucleated RBC 0.00 x10^3/uL Nucleated RBC % 0.0 /100WBC Sodium 136 (135-145) mmol/L Potassium 3.6 (3.5-4.5) mmol/L Chloride 106 (101-111) mmol/L Carbon Dioxide 25 (21-32) mmol/L Anion Gap 5.0 L (6-13) BUN 17 (6-20) mg/dL Creatinine 0.8 (0.6-1.3) mg/dL Estimated GFR (MDRD) 93 (>89) Glucose 156 H (74-104) mg/dL POC Whole Bld Glucose 152 191 (70-100) mg/dL Calcium 8.3 L (8.5-10.3) mg/dL 03/27/25 Range/Units 16:52 WBC (4.8-10.8) x10^3/uL RBC (4.70-6.10) 10^6/uL Hgb (14.0-18.0) g/dL Hct (42.0-52.0) % MCV (80.0-94.0) fL MCH (27.0-31.0) pg MCHC (32.0-36.0) g/dL RDW (12.0-15.0) % Plt Count (130-450) 10^3/uL MPV (7.4-11.4) fL Neut # (Auto) (1.5-6.6) 10^3/uL Lymph # (Auto) (1.5-3.5) 10^3/uL [place] # (Auto) (0.0-1.0) 10^3/uL Eos # (Auto) (0.0-0.7) 10^3/uL Baso # (Auto) (0.0-0.1) 10^3/uL Absolute Nucleated RBC x10^3/uL Nucleated RBC % /100WBC Sodium (135-145) mmol/L Potassium (3.5-4.5) mmol/L Chloride (101-111) mmol/L Carbon Dioxide (21-32) mmol/L Anion Gap (6-13) BUN (6-20) mg/dL Creatinine (0.6-1.3) mg/dL Estimated GFR (MDRD) (>89) Glucose (74-104) mg/dL POC Whole Bld Glucose 181 (70-100) mg/dL Calcium (8.5-10.3) mg/dL ABX Reporting Has patient been on IV antibiotics over the past 48 hours?: Yes Sepsis Event Note (H) Evaluation Current Stage of Sepsis: Resolved Possible source of Sepsis: positive Pulmonary Assessment/Plan Problem List (1) Stroke due to embolism: Impression: Patient underwent CVA workup due to new left sided neglect. MRI revealed acute infarct in the right inferior occipital gyrus, with no hemorrhagic conversion. This seems to be consistent with the patients HPI and clinical presentation. CTA head/neck was Unremarkable with no evidence of large vessel occlusion, aneurysm or vascular malformation revealed. Neuro during PE reveals no focal neuro deficit. Since the CTA had negative findings patient was started back on Eliquis to treat his aFib. - Stroke workup complete - Continue Eliquis Qualifiers: Laterality of affected vessel: right (2) Altered mental status: Impression: Patient has experiencing failure to thrive compounded with dementia. Spoke with patient today about SW working on placing him in a SNF near [place]. Today patient was talkative, alert and understanding to his current situation. We explained to the patient that he has had a recent stroke and PNA. Patient was educated on current health problems and care plan. We also conversed about medication compliance and the importance to taking these medications to prevent further injuries. (3) CAP (community acquired pneumonia): Impression: Chest xray from 03/25/25 revealed right basilar opacity in addition to a WBC that correlates to an infection. PE reveals right sided basilar rales. WBC count has normalized, currently at 9.2 down from 12.1 at the time of admission with favorable O2 saturation on RA. Treatments continue to show positive trends, currently on Rocephin 1g, Day #3. - Continue to trend WBCs - Switch IV to PO medications, patient has completed 3 doses of Rocephin IV, and 3 days of azithromycin. - Start Augmentin PO 875/125 1 tab PO BID x 2 days (4) Clavicle fracture: Impression: Conservative care. (5) History of atrial fibrillation: Impression: Long standing history of aFib. Patient was started back on Apixaban for thrombosis prophylaxis. (6) Failure to thrive in adult: Impression: Discussed with patient medication compliance since he has not filled his meds since October. [facility] stated that [facility] from [facility]. He [place] [facility] his [facility] mail from the [place] but he is unsure if he had [facility] to [facility] that he is currently prescribed. Also discussed with SW placement at SNF in [place] allow for better support from family for the patients needs. See above.
[2025-03-29 06:12] LABS: HCT - HEMATOCRIT 45.0 % (42.0-52.0); HGB - HEMOGLOBIN 15.1 g/dL (14.0-18.0); MEAN PLATELET VOLUME 10.2 fL (7.4-11.4); NRBC ABSOLUTE COUNT (AUTO) 0.00 x10^3/uL; NUCLEATED RED BLOOD CELLS AUTO 0.0 /100WBC; PLT - PLATELET COUNT 197 10^3/uL (130-450); RED CELL DISTRIBUTION WIDTH 13.1 % (12.0-15.0)
[2025-03-29 06:33] LABS: BUN - BLOOD UREA NITROGEN 16.0 mg/dL (6-20); CARBON DIOXIDE - CO2 26.0 mmol/L (21-32); CREATININE 0.8 mg/dL (0.6-1.3); GFR - MDRD 93.0 (>89)
[2025-03-29] MEDS: AMOX/CLAV 875 MG/125 MG TABLET PO SCH (08:22)
[2025-03-29] MEDS: POTASSIUM CHLORIDE 20 MEQ TABLET PO ONE (08:26)
--- NOTE | 2025-03-29 13:14 | PROVIDER PROGRESS NOTE ---
<Statement entered by Omi Luna DNP - 03/29/25 17:10> Patient was seen and examined by me with a separate encounter after being seen by [employer]OLAND[employer] student. I reviewed the student's documentation including patient history, physical examination, laboratory, imaging, clinical assessment and treatment plan. I have discussed the management of the patient with the student, and with the patient. There are no changes. Briefly, patient is medically ready for discharge, Needs facility placement. Continue Eliquis. Continuing oral antibiotics for CAP Subjective Prog Note Date Prog Note Date: 03/29/25 Prog Note Time: 13:10 Subjective Pt reports feeling: No change Subjective: Patient demonstrated marked improvement in his ability to recall the past events, he was AOx4. He was accompanied with family today. Patient is medically cleared and is awaiting discharge pending SNF placement. Current Medications Current Medications Current Medications: Current Medications Generic Name Dose Route Start Last Admin Trade Name Freq PRN Reason Stop Dose Admin Acetaminophen 650 mg 03/25/25 19:41 03/28/25 07:24 Acetaminophen 325 Mg Tablet PO 650 mg Q4HR PRN Administration Pain 1 to 4, or Fever Albuterol/Ipratropium 3 ml 03/25/25 19:41 Ipratropium/Albuterol 3 Ml Neb INH Q4HR PRN Wheezing Amoxicillin/Clavulanate Potassium 1 tab 03/29/25 09:00 03/29/25 08:22 Amox/Clav 875 Mg/125 Mg Tablet PO 03/30/25 21:01 1 tab BID REMEDIOS Administration Apixaban 5 mg 03/26/25 21:00 03/29/25 08:22 Apixaban 5 Mg Tablet PO 5 mg BID REMEDIOS Administration Docusate Sodium 250 - 500 mg 03/27/25 09:00 03/29/25 08:22 Docusate Sodium 250 Mg Capsule PO Not Given DAILY REMEDIOS Hydroxyzine Pamoate 25 mg 03/27/25 21:08 03/28/25 20:55 Hydroxyzine Pamoate 25 Mg Capsule PO 25 mg QPM PRN Administration Insomnia Insulin Glargine-yfgn 10 unit 03/26/25 21:00 03/28/25 20:48 Insulin Glargine-Yfgn 300 Unit/3 Ml Pen SUBQ 10 unit QPM REMEDIOS Administration Insulin Human Lispro 1 - 5 unit 03/25/25 21:00 03/29/25 08:21 Insulin Lispro 300 Unit/3 Ml Pen SUBQ 1 unit 0800,1200,1700,2100 REMEDIOS Administration Protocol Multivitamins/Minerals 1 tab 03/27/25 08:00 03/29/25 08:22 Multivitamin W/Minerals Tablet PO 1 tab DAILYWM REMEDIOS Administration Ondansetron HCl 4 mg 03/25/25 19:41 Ondansetron 4 Mg/2 Ml Vial IVP Q6HR PRN Nausea / Vomiting Polyethylene Glycol 17 gm 03/27/25 09:00 03/29/25 08:22 Polyethylene Glycol 3350 17 Gm Packet PO Not Given DAILY REMEDIOS Senna 8.6 - 17.2 mg 03/27/25 09:00 03/29/25 08:22 Senna 8.6 Mg Tablet PO 8.6 mg DAILY REMEDIOS Administration Sodium Chloride 10 ml 03/25/25 19:41 Sodium Chloride Flush 0.9% 10 Ml Syringe IVP PRN PRN NEEDED PER PROVIDER ORDERS Sodium Chloride 10 ml 03/26/25 01:00 03/29/25 08:22 Sodium Chloride Flush 0.9% 10 Ml Syringe IVP 10 ml 0100,0900,1700 REMEDIOS Administration Objective Vital Signs/Intake & Output Reviewed Vital Signs: Yes Vital Signs: Vital Signs x48h Temp Pulse Resp BP Pulse Ox 03/29/25 08:12 36.7 C 63 20 174/104 H 96 Intake & Output: Intake & Output 03/26/25 03/27/25 03/28/25 03/29/25 23:59 23:59 23:59 23:59 Intake Total 1950 / 1950 2380 / 2380 2410 / 2410 340 / 340 Output Total 700 / 700 900 / 900 1500 / 1500 725 / 725 Balance 1250 / 1250 1480 / 1480 910 / 910 -385 / -385 Objective General Appearance: positive No acute distress and Alert Eyes Bilateral: positive Normal inspection, PERRL, EOMI and Conjunctivae nml ENT: positive ENT inspection nml, Pharynx nml and No signs of dehydration Neck: positive Nml inspection, Thyroid nml, No JVD and Trachea midline Respiratory: positive Chest non-tender, No respiratory distress and Breath sounds nml Cardiovascular: positive No murmur, No gallop and Irregularly irregular Abdomen: positive Non-tender, No organomegaly and Nml bowel sounds Skin: positive Color nml, No rash, Warm and Dry Extremities: positive Full ROM, Nml appearance and No pedal edema Neurologic/Psychiatric: positive Oriented x3 Lab Results 03/29/25 05:55 03/29/25 05:55 Other Labs: Lab Results x24hrs 03/29/25 03/29/25 03/28/25 Range/Units 08:00 05:55 20:27 WBC 9.1 (4.8-10.8) x10^3/uL RBC 4.61 L (4.70-6.10) 10^6/uL Hgb 15.1 (14.0-18.0) g/dL Hct 45.0 (42.0-52.0) % MCV 97.6 H (80.0-94.0) fL MCH 32.8 H (27.0-31.0) pg MCHC 33.6 (32.0-36.0) g/dL RDW 13.1 (12.0-15.0) % Plt Count 197 (130-450) 10^3/uL MPV 10.2 (7.4-11.4) fL Neut # (Auto) 7.1 H (1.5-6.6) 10^3/uL Lymph # (Auto) 0.8 L (1.5-3.5) 10^3/uL [place] # (Auto) 1.0 (0.0-1.0) 10^3/uL Eos # (Auto) 0.2 (0.0-0.7) 10^3/uL Baso # (Auto) 0.0 (0.0-0.1) 10^3/uL Absolute Nucleated RBC 0.00 x10^3/uL Nucleated RBC % 0.0 /100WBC Sodium 135 (135-145) mmol/L Potassium 3.4 L (3.5-4.5) mmol/L Chloride 104 (101-111) mmol/L Carbon Dioxide 26 (21-32) mmol/L Anion Gap 5.0 L (6-13) BUN 16 (6-20) mg/dL Creatinine 0.8 (0.6-1.3) mg/dL Estimated GFR (MDRD) 93 (>89) Glucose 194 H (74-104) mg/dL POC Whole Bld Glucose 172 267 (70-100) mg/dL Calcium 8.3 L (8.5-10.3) mg/dL 03/28/25 03/28/25 Range/Units 16:36 11:16 WBC (4.8-10.8) x10^3/uL RBC (4.70-6.10) 10^6/uL Hgb (14.0-18.0) g/dL Hct (42.0-52.0) % MCV (80.0-94.0) fL MCH (27.0-31.0) pg MCHC (32.0-36.0) g/dL RDW (12.0-15.0) % Plt Count (130-450) 10^3/uL MPV (7.4-11.4) fL Neut # (Auto) (1.5-6.6) 10^3/uL Lymph # (Auto) (1.5-3.5) 10^3/uL [place] # (Auto) (0.0-1.0) 10^3/uL Eos # (Auto) (0.0-0.7) 10^3/uL Baso # (Auto) (0.0-0.1) 10^3/uL Absolute Nucleated RBC x10^3/uL Nucleated RBC % /100WBC Sodium (135-145) mmol/L Potassium (3.5-4.5) mmol/L Chloride (101-111) mmol/L Carbon Dioxide (21-32) mmol/L Anion Gap (6-13) BUN (6-20) mg/dL Creatinine (0.6-1.3) mg/dL Estimated GFR (MDRD) (>89) Glucose (74-104) mg/dL POC Whole Bld Glucose 224 159 (70-100) mg/dL Calcium (8.5-10.3) mg/dL Sepsis Event Note (H) Evaluation Current Stage of Sepsis: Resolved Possible source of Sepsis: positive Pulmonary Sepsis Criteria Sepsis Criteria: WBC count greater than 12,000 or less than 4000 Assessment/Plan Problem List (1) Stroke due to embolism: Impression: Patient underwent CVA workup due to new left sided neglect. MRI revealed acute infarct in the right inferior occipital gyrus, with no hemorrhagic conversion. This seems to be consistent with the patients HPI and clinical presentation. CTA head/neck was Unremarkable with no evidence of large vessel occlusion, aneurysm or vascular malformation revealed. Neuro during PE reveals no focal neuro deficit. Since the CTA had negative findings patient was started back on Eliquis to treat his aFib. - Stroke workup complete - Continue Eliquis Qualifiers: Laterality of affected vessel: right (2) Altered mental status: Impression: Patient has experiencing failure to thrive compounded with dementia. Spoke with patient today about SW working on placing him in a SNF near [place]. Today patient was talkative as usual and alert, he understands hes medically cleared and awaiting SNF placement. He is looking forward to being near his family. (3) CAP (community acquired pneumonia): Impression: Chest xray from 03/25/25 revealed right basilar opacity in addition to a WBC that correlates to an infection. PE reveals right sided basilar rales. WBC count has normalized, currently at 9.1 down from 9.2 and normal O2 sats on RA. Treatments continue to show positive trends, switched to PO meds yesterday. - Continue to trend WBCs - Continue Augmentin PO 875/125 1 tab PO BID x 1 days (4) Clavicle fracture: Impression: Conservative care. (5) History of atrial fibrillation: Impression: Long standing history of aFib. - Continue Apixaban (6) Failure to thrive in adult: Impression: Discussed placement to SNF at [facility], placement got denied because they don't have memory care. His presentation is in line with dementia which is causing poor medicine complaince as well as impairment of cogniative abilitys that affect ADLs.
[2025-03-29] MEDS: MELATONIN 3 MG TABLET PO SCH (20:41)
[2025-03-29] MEDS: INSULIN LISPRO 300 UNIT/3 ML PEN SUBQ SCH (21:08)
[2025-03-30 06:41] LABS: HCT - HEMATOCRIT 44.4 % (42.0-52.0); HGB - HEMOGLOBIN 14.8 g/dL (14.0-18.0); MEAN PLATELET VOLUME 10.2 fL (7.4-11.4); NRBC ABSOLUTE COUNT (AUTO) 0.00 x10^3/uL; NUCLEATED RED BLOOD CELLS AUTO 0.0 /100WBC; PLT - PLATELET COUNT 188 10^3/uL (130-450); RED CELL DISTRIBUTION WIDTH 13.1 % (12.0-15.0)
[2025-03-30 06:59] LABS: BUN - BLOOD UREA NITROGEN 16.0 mg/dL (6-20); CARBON DIOXIDE - CO2 29.0 mmol/L (21-32); CREATININE 0.8 mg/dL (0.6-1.3); GFR - MDRD 93.0 (>89)
--- NOTE | 2025-03-30 13:01 | PROVIDER PROGRESS NOTE ---
Subjective Prog Note Date Prog Note Date: 03/30/25 Subjective Pt reports feeling: No change Current Medications Current Medications Current Medications: Current Medications Generic Name Dose Route Start Last Admin Trade Name Freq PRN Reason Stop Dose Admin Acetaminophen 650 mg 03/25/25 19:41 03/28/25 07:24 Acetaminophen 325 Mg Tablet PO 650 mg Q4HR PRN Administration Pain 1 to 4, or Fever Albuterol/Ipratropium 3 ml 03/25/25 19:41 Ipratropium/Albuterol 3 Ml Neb INH Q4HR PRN Wheezing Amoxicillin/Clavulanate Potassium 1 tab 03/29/25 09:00 03/30/25 08:41 Amox/Clav 875 Mg/125 Mg Tablet PO 03/30/25 21:01 1 tab BID REMEDIOS Administration Apixaban 5 mg 03/26/25 21:00 03/30/25 08:41 Apixaban 5 Mg Tablet PO 5 mg BID REMEDIOS Administration Docusate Sodium 250 - 500 mg 03/27/25 09:00 03/30/25 08:41 Docusate Sodium 250 Mg Capsule PO 250 mg DAILY REMEDIOS Administration Hydroxyzine Pamoate 25 mg 03/27/25 21:08 03/28/25 20:55 Hydroxyzine Pamoate 25 Mg Capsule PO 25 mg QPM PRN Administration Insomnia Insulin Glargine-yfgn 10 unit 03/26/25 21:00 03/29/25 21:06 Insulin Glargine-Yfgn 300 Unit/3 Ml Pen SUBQ 10 unit QPM REMEDIOS Administration Insulin Human Lispro 1 - 9 unit 03/29/25 21:00 03/30/25 11:36 Insulin Lispro 300 Unit/3 Ml Pen SUBQ 3 unit 0800,1200,1700,2100 REMEDIOS Administration Protocol Melatonin 3 mg 03/29/25 21:00 03/29/25 20:41 Melatonin 3 Mg Tablet PO 3 mg QPM REMEDIOS Administration Multivitamins/Minerals 1 tab 03/27/25 08:00 03/30/25 08:41 Multivitamin W/Minerals Tablet PO 1 tab DAILYWM REMEDIOS Administration Ondansetron HCl 4 mg 03/25/25 19:41 Ondansetron 4 Mg/2 Ml Vial IVP Q6HR PRN Nausea / Vomiting Polyethylene Glycol 17 gm 03/27/25 09:00 03/30/25 08:41 Polyethylene Glycol 3350 17 Gm Packet PO 17 gm DAILY REMEDIOS Administration Senna 8.6 - 17.2 mg 03/27/25 09:00 03/30/25 08:41 Senna 8.6 Mg Tablet PO 8.6 mg DAILY REMEDIOS Administration Sodium Chloride 10 ml 03/25/25 19:41 Sodium Chloride Flush 0.9% 10 Ml Syringe IVP PRN PRN NEEDED PER PROVIDER ORDERS Sodium Chloride 10 ml 03/26/25 01:00 03/30/25 08:44 Sodium Chloride Flush 0.9% 10 Ml Syringe IVP 10 ml 0100,0900,1700 REMEDIOS Administration Objective Vital Signs/Intake & Output Reviewed Vital Signs: Yes Vital Signs: Vital Signs x48h Temp Pulse Resp BP Pulse Ox 03/30/25 07:36 36.6 C 85 18 149/90 H 98 Intake & Output: Intake & Output 03/27/25 03/28/25 03/29/25 03/30/25 23:59 23:59 23:59 23:59 Intake Total 2380 / 2380 2410 / 2410 1180 / 1180 1040 / 1040 Output Total 900 / 900 1500 / 1500 725 / 725 500 / 500 Balance 1480 / 1480 910 / 910 455 / 455 540 / 540 Objective General Appearance: positive No acute distress and Alert Eyes Bilateral: positive Normal inspection, PERRL, EOMI and Conjunctivae nml ENT: positive ENT inspection nml, Pharynx nml and No signs of dehydration Neck: positive Nml inspection, Thyroid nml, No JVD and Trachea midline Respiratory: positive Chest non-tender, No respiratory distress and Breath sounds nml Cardiovascular: positive No murmur, No gallop and Irregularly irregular Abdomen: positive Non-tender, No organomegaly and Nml bowel sounds Skin: positive Color nml, No rash, Warm and Dry Extremities: positive Full ROM, Nml appearance and No pedal edema Neurologic/Psychiatric: positive Oriented x3 Lab Results 03/30/25 06:27 03/30/25 06:27 Other Labs: Lab Results x24hrs 03/30/25 03/30/25 03/30/25 Range/Units 11:12 07:33 06:27 WBC 8.2 (4.8-10.8) x10^3/uL RBC 4.48 L (4.70-6.10) 10^6/uL Hgb 14.8 (14.0-18.0) g/dL Hct 44.4 (42.0-52.0) % MCV 99.1 H (80.0-94.0) fL MCH 33.0 H (27.0-31.0) pg MCHC 33.3 (32.0-36.0) g/dL RDW 13.1 (12.0-15.0) % Plt Count 188 (130-450) 10^3/uL MPV 10.2 (7.4-11.4) fL Neut # (Auto) 5.8 (1.5-6.6) 10^3/uL Lymph # (Auto) 0.9 L (1.5-3.5) 10^3/uL [place] # (Auto) 1.2 H (0.0-1.0) 10^3/uL Eos # (Auto) 0.3 (0.0-0.7) 10^3/uL Baso # (Auto) 0.1 (0.0-0.1) 10^3/uL Absolute Nucleated RBC 0.00 x10^3/uL Nucleated RBC % 0.0 /100WBC Sodium 139 (135-145) mmol/L Potassium 3.5 (3.5-4.5) mmol/L Chloride 105 (101-111) mmol/L Carbon Dioxide 29 (21-32) mmol/L Anion Gap 5.0 L (6-13) BUN 16 (6-20) mg/dL Creatinine 0.8 (0.6-1.3) mg/dL Estimated GFR (MDRD) 93 (>89) Glucose 85 (74-104) mg/dL POC Whole Bld Glucose 186 84 (70-100) mg/dL Calcium 8.6 (8.5-10.3) mg/dL 03/29/25 03/29/25 Range/Units 20:29 16:46 WBC (4.8-10.8) x10^3/uL RBC (4.70-6.10) 10^6/uL Hgb (14.0-18.0) g/dL Hct (42.0-52.0) % MCV (80.0-94.0) fL MCH (27.0-31.0) pg MCHC (32.0-36.0) g/dL RDW (12.0-15.0) % Plt Count (130-450) 10^3/uL MPV (7.4-11.4) fL Neut # (Auto) (1.5-6.6) 10^3/uL Lymph # (Auto) (1.5-3.5) 10^3/uL [place] # (Auto) (0.0-1.0) 10^3/uL Eos # (Auto) (0.0-0.7) 10^3/uL Baso # (Auto) (0.0-0.1) 10^3/uL Absolute Nucleated RBC x10^3/uL Nucleated RBC % /100WBC Sodium (135-145) mmol/L Potassium (3.5-4.5) mmol/L Chloride (101-111) mmol/L Carbon Dioxide (21-32) mmol/L Anion Gap (6-13) BUN (6-20) mg/dL Creatinine (0.6-1.3) mg/dL Estimated GFR (MDRD) (>89) Glucose (74-104) mg/dL POC Whole Bld Glucose 300 196 (70-100) mg/dL Calcium (8.5-10.3) mg/dL Sepsis Event Note (H) Evaluation Current Stage of Sepsis: Resolved Possible source of Sepsis: positive Pulmonary Sepsis Criteria Sepsis Criteria: WBC count greater than 12,000 or less than 4000 Assessment/Plan Problem List (1) Stroke due to embolism: Impression: Patient underwent CVA workup due to new left sided neglect. MRI revealed acute infarct in the right inferior occipital gyrus, with no hemorrhagic conversion. This seems to be consistent with the patients HPI and clinical presentation. CTA head/neck was Unremarkable with no evidence of large vessel occlusion, aneurysm or vascular malformation revealed. Neuro during PE reveals no focal neuro deficit. Since the CTA had negative findings patient was started back on Eliquis to treat his aFib. - Stroke workup complete - Continue Eliquis 03/30: Remains medically clear for discharge. Continue Eliquis Qualifiers: Laterality of affected vessel: right (2) Altered mental status: Impression: Patient has experiencing failure to thrive compounded with dementia. Spoke with patient today about SW working on placing him in a SNF near [place]. Today patient was talkative as usual and alert, he understands hes medically cleared and awaiting SNF placement. He is looking forward to being near his family. (3) CAP (community acquired pneumonia): Impression: Chest xray from 03/25/25 revealed right basilar opacity in addition to a WBC that correlates to an infection. PE reveals right sided basilar rales. WBC count has normalized, currently at 9.1 down from 9.2 and normal O2 sats on RA. Treatments continue to show positive trends, switched to PO meds yesterday. - Continue to trend WBCs 03/30: Today is last day of Augmentin (4) Clavicle fracture: Impression: Conservative care. (5) History of atrial fibrillation: Impression: Long standing history of aFib. - Continue Apixaban (6) Failure to thrive in adult: Impression: Discussed placement to SNF at [facility], placement got denied because they don't have memory care. His presentation is in line with dementia which is causing poor medicine complaince as well as impairment of cogniative abilitys that affect ADLs.
[2025-03-31] MEDS: ONDANSETRON 4 MG/2 ML VIAL IVP PRN (10:29)
--- NOTE | 2025-03-31 13:07 | PROVIDER PROGRESS NOTE ---
Subjective Prog Note Date Prog Note Date: 03/31/25 Subjective Pt reports feeling: No change Current Medications Current Medications Current Medications: Current Medications Generic Name Dose Route Start Last Admin Trade Name Freq PRN Reason Stop Dose Admin Acetaminophen 650 mg 03/25/25 19:41 03/30/25 21:37 Acetaminophen 325 Mg Tablet PO 650 mg Q4HR PRN Administration Pain 1 to 4, or Fever Albuterol/Ipratropium 3 ml 03/25/25 19:41 Ipratropium/Albuterol 3 Ml Neb INH Q4HR PRN Wheezing Apixaban 5 mg 03/26/25 21:00 03/31/25 08:24 Apixaban 5 Mg Tablet PO 5 mg BID REMEDIOS Administration Docusate Sodium 250 - 500 mg 03/27/25 09:00 03/31/25 08:25 Docusate Sodium 250 Mg Capsule PO 250 mg DAILY REMEDIOS Administration Hydroxyzine Pamoate 25 mg 03/27/25 21:08 03/28/25 20:55 Hydroxyzine Pamoate 25 Mg Capsule PO 25 mg QPM PRN Administration Insomnia Insulin Glargine-yfgn 10 unit 03/26/25 21:00 03/30/25 21:35 Insulin Glargine-Yfgn 300 Unit/3 Ml Pen SUBQ 10 unit QPM REMEDIOS Administration Insulin Human Lispro 1 - 9 unit 03/29/25 21:00 03/31/25 08:24 Insulin Lispro 300 Unit/3 Ml Pen SUBQ Not Given 0800,1200,1700,2100 [facility] Protocol Melatonin 3 mg 03/29/25 21:00 03/30/25 21:37 Melatonin 3 Mg Tablet PO 3 mg QPM REMEDIOS Administration Multivitamins/Minerals 1 tab 03/27/25 08:00 03/31/25 08:24 Multivitamin W/Minerals Tablet PO 1 tab DAILYWM REMEDIOS Administration Ondansetron HCl 4 mg 03/25/25 19:41 03/31/25 10:29 Ondansetron 4 Mg/2 Ml Vial IVP 4 mg Q6HR PRN Administration Nausea / Vomiting Polyethylene Glycol 17 gm 03/27/25 09:00 03/31/25 08:25 Polyethylene Glycol 3350 17 Gm Packet PO 17 gm DAILY REMEDIOS Administration Senna 8.6 - 17.2 mg 03/27/25 09:00 03/31/25 08:25 Senna 8.6 Mg Tablet PO 8.6 mg DAILY REMEDIOS Administration Sodium Chloride 10 ml 03/25/25 19:41 Sodium Chloride Flush 0.9% 10 Ml Syringe IVP PRN PRN NEEDED PER PROVIDER ORDERS Sodium Chloride 10 ml 03/26/25 01:00 03/31/25 08:26 Sodium Chloride Flush 0.9% 10 Ml Syringe IVP 10 ml 0100,0900,1700 REMEDIOS Administration Objective Vital Signs/Intake & Output Reviewed Vital Signs: Yes Vital Signs: Vital Signs x48h Temp Pulse Resp BP Pulse Ox 03/31/25 07:35 36.6 C 53 L 18 166/96 H 97 Intake & Output: Intake & Output 03/28/25 03/29/25 03/30/25 03/31/25 23:59 23:59 23:59 23:59 Intake Total 2410 / 2410 1180 / 1180 1700 / 1700 700 / 700 Output Total 1500 / 1500 725 / 725 1350 / 1350 400 / 400 Balance 910 / 910 455 / 455 350 / 350 300 / 300 Objective General Appearance: positive No acute distress and Alert Eyes Bilateral: positive Normal inspection, PERRL, EOMI and Conjunctivae nml ENT: positive ENT inspection nml, Pharynx nml and No signs of dehydration Neck: positive Nml inspection, Thyroid nml, No JVD and Trachea midline Respiratory: positive Chest non-tender, No respiratory distress and Breath sounds nml Cardiovascular: positive No murmur, No gallop and Irregularly irregular Abdomen: positive Non-tender, No organomegaly and Nml bowel sounds Skin: positive Color nml, No rash, Warm and Dry Extremities: positive Full ROM, Nml appearance and No pedal edema Neurologic/Psychiatric: positive Oriented x3 Lab Results 03/30/25 06:27 03/30/25 06:27 Other Labs: Lab Results x24hrs 03/31/25 03/31/25 03/30/25 Range/Units 11:23 07:33 20:54 POC Whole Bld Glucose 117 112 276 (70-100) mg/dL 03/30/25 Range/Units 17:06 POC Whole Bld Glucose 122 (70-100) mg/dL Sepsis Event Note (H) Evaluation Current Stage of Sepsis: Resolved Possible source of Sepsis: positive Pulmonary Sepsis Criteria Sepsis Criteria: WBC count greater than 12,000 or less than 4000 Assessment/Plan Problem List (1) Stroke due to embolism: Impression: Patient underwent CVA workup due to new left sided neglect. MRI revealed acute infarct in the right inferior occipital gyrus, with no hemorrhagic conversion. This seems to be consistent with the patients HPI and clinical presentation. CTA head/neck was Unremarkable with no evidence of large vessel occlusion, aneurysm or vascular malformation revealed. Neuro during PE reveals no focal neuro deficit. Since the CTA had negative findings patient was started back on Eliquis to treat his aFib. - Stroke workup complete - Continue Eliquis 03/30: Remains medically clear for discharge. Continue Eliquis Qualifiers: Laterality of affected vessel: right (2) Altered mental status: Impression: Patient has experiencing failure to thrive compounded with dementia. Spoke with patient today about SW working on placing him in a SNF near [place]. Today patient was talkative as usual and alert, he understands hes medically cleared and awaiting SNF placement. He is looking forward to being near his family. (3) CAP (community acquired pneumonia): Impression: Chest xray from 03/25/25 revealed right basilar opacity in addition to a WBC that correlates to an infection. PE reveals right sided basilar rales. WBC count has normalized, currently at 9.1 down from 9.2 and normal O2 sats on RA. Treatments continue to show positive trends, switched to PO meds yesterday. - Continue to trend WBCs 03/30: Today is last day of Augmentin 03/31: He has now completed his course of antibiotics for pneumonia (4) Clavicle fracture: Impression: Distal clavicle fracture noted on x-ray 02/17. Nonoperative (5) History of atrial fibrillation: Impression: Long standing history of aFib. - Continue Apixaban (6) Failure to thrive in adult: Impression: Discussed placement to SNF at [facility], placement got denied because they don't have memory care. His presentation is in line with dementia which is causing poor medicine complaince as well as impairment of cogniative abilitys that affect ADLs.
[2025-04-01] MEDS: INSULIN LISPRO 300 UNIT/3 ML PEN SUBQ SCH (10:30)
--- NOTE | 2025-04-01 11:58 | PROVIDER PROGRESS NOTE ---
Subjective Prog Note Date Prog Note Date: 04/01/25 Subjective Pt reports feeling: No change Current Medications Current Medications Current Medications: Current Medications Generic Name Dose Route Start Last Admin Trade Name Freq PRN Reason Stop Dose Admin Acetaminophen 650 mg 03/25/25 19:41 03/30/25 21:37 Acetaminophen 325 Mg Tablet PO 650 mg Q4HR PRN Administration Pain 1 to 4, or Fever Albuterol/Ipratropium 3 ml 03/25/25 19:41 Ipratropium/Albuterol 3 Ml Neb INH Q4HR PRN Wheezing Apixaban 5 mg 03/26/25 21:00 04/01/25 08:01 Apixaban 5 Mg Tablet PO 5 mg BID REMEDIOS Administration Docusate Sodium 250 - 500 mg 03/27/25 09:00 04/01/25 08:01 Docusate Sodium 250 Mg Capsule PO 250 mg DAILY REMEDIOS Administration Hydroxyzine Pamoate 25 mg 03/27/25 21:08 03/28/25 20:55 Hydroxyzine Pamoate 25 Mg Capsule PO 25 mg QPM PRN Administration Insomnia Insulin Glargine-yfgn 10 unit 03/26/25 21:00 03/31/25 20:57 Insulin Glargine-Yfgn 300 Unit/3 Ml Pen SUBQ 10 unit QPM REMEDIOS Administration Insulin Human Lispro 2 - 10 unit 04/01/25 08:00 04/01/25 10:30 Insulin Lispro 300 Unit/3 Ml Pen SUBQ Not Given 0800,1200,1700,2100 [facility] Protocol Melatonin 3 mg 03/29/25 21:00 03/31/25 20:55 Melatonin 3 Mg Tablet PO 3 mg QPM REMEDIOS Administration Multivitamins/Minerals 1 tab 03/27/25 08:00 04/01/25 08:01 Multivitamin W/Minerals Tablet PO 1 tab DAILYWM REMEDIOS Administration Ondansetron HCl 4 mg 03/25/25 19:41 03/31/25 10:29 Ondansetron 4 Mg/2 Ml Vial IVP 4 mg Q6HR PRN Administration Nausea / Vomiting Polyethylene Glycol 17 gm 03/27/25 09:00 04/01/25 08:01 Polyethylene Glycol 3350 17 Gm Packet PO 17 gm DAILY REMEDIOS Administration Senna 8.6 - 17.2 mg 03/27/25 09:00 04/01/25 08:01 Senna 8.6 Mg Tablet PO 8.6 mg DAILY REMEDIOS Administration Sodium Chloride 10 ml 03/25/25 19:41 Sodium Chloride Flush 0.9% 10 Ml Syringe IVP PRN PRN NEEDED PER PROVIDER ORDERS Sodium Chloride 10 ml 03/26/25 01:00 04/01/25 08:03 Sodium Chloride Flush 0.9% 10 Ml Syringe IVP 10 ml 0100,0900,1700 REMEDIOS Administration Objective Vital Signs/Intake & Output Reviewed Vital Signs: Yes Vital Signs: Vital Signs x48h Temp Pulse Resp BP Pulse Ox 04/01/25 08:45 36.5 C 85 17 150/94 H 98 Intake & Output: Intake & Output 03/29/25 03/30/25 03/31/25 04/01/25 23:59 23:59 23:59 23:59 Intake Total 1180 / 1180 1700 / 1700 1310 / 1310 540 / 540 Output Total 725 / 725 1350 / 1350 400 / 400 175 / 175 Balance 455 / 455 350 / 350 910 / 910 365 / 365 Objective General Appearance: positive No acute distress and Alert Eyes Bilateral: positive Normal inspection, PERRL, EOMI and Conjunctivae nml ENT: positive ENT inspection nml, Pharynx nml and No signs of dehydration Neck: positive Nml inspection, Thyroid nml, No JVD and Trachea midline Respiratory: positive Chest non-tender, No respiratory distress and Breath sounds nml Cardiovascular: positive No murmur, No gallop and Irregularly irregular Abdomen: positive Non-tender, No organomegaly and Nml bowel sounds Skin: positive Color nml, No rash, Warm and Dry Extremities: positive Full ROM, Nml appearance and No pedal edema Neurologic/Psychiatric: positive Oriented x3 Lab Results 03/30/25 06:27 03/30/25 06:27 Other Labs: Lab Results x24hrs 04/01/25 03/31/25 03/31/25 Range/Units 07:49 20:54 16:49 POC Whole Bld Glucose 81 228 280 (70-100) mg/dL 03/31/25 Range/Units 16:42 POC Whole Bld Glucose 300 (70-100) mg/dL Sepsis Event Note (H) Evaluation Current Stage of Sepsis: Resolved Possible source of Sepsis: positive Pulmonary Sepsis Criteria Sepsis Criteria: WBC count greater than 12,000 or less than 4000 Assessment/Plan Problem List (1) Stroke due to embolism: Impression: Patient underwent CVA workup due to new left sided neglect. MRI revealed acute infarct in the right inferior occipital gyrus, with no hemorrhagic conversion. This seems to be consistent with the patients HPI and clinical presentation. CTA head/neck was Unremarkable with no evidence of large vessel occlusion, aneurysm or vascular malformation revealed. Neuro during PE reveals no focal neuro deficit. Since the CTA had negative findings patient was started back on Eliquis to treat his aFib. - Stroke workup complete - Continue Eliquis 03/30: Remains medically clear for discharge. Continue Eliquis Qualifiers: Laterality of affected vessel: right (2) Altered mental status: Impression: Patient has experiencing failure to thrive compounded with dementia. Spoke with patient today about SW working on placing him in a SNF near [place]. Today patient was talkative as usual and alert, he understands hes medically cleared and awaiting SNF placement. He is looking forward to being near his family. (3) CAP (community acquired pneumonia): Impression: Chest xray from 03/25/25 revealed right basilar opacity in addition to a WBC that correlates to an infection. PE reveals right sided basilar rales. WBC count has normalized, currently at 9.1 down from 9.2 and normal O2 sats on RA. Treatments continue to show positive trends, switched to PO meds yesterday. - Continue to trend WBCs 03/30: Today is last day of Augmentin 03/31: He has now completed his course of antibiotics for pneumonia (4) Clavicle fracture: Impression: Distal clavicle fracture noted on x-ray 02/17. Nonoperative (5) History of atrial fibrillation: Impression: Long standing history of aFib. - Continue Apixaban (6) Failure to thrive in adult: Impression: Discussed placement to SNF at [facility], placement got denied because they don't have memory care. His presentation is in line with dementia which is causing poor medicine complaince as well as impairment of cogniative abilitys that affect ADLs.
--- NOTE | 2025-04-02 13:07 | PROVIDER PROGRESS NOTE ---
Subjective Prog Note Date Prog Note Date: 04/02/25 Subjective Pt reports feeling: No change Current Medications Current Medications Current Medications: Current Medications Generic Name Dose Route Start Last Admin Trade Name Freq PRN Reason Stop Dose Admin Acetaminophen 650 mg 03/25/25 19:41 04/02/25 10:15 Acetaminophen 325 Mg Tablet PO 650 mg Q4HR PRN Administration Pain 1 to 4, or Fever Albuterol/Ipratropium 3 ml 03/25/25 19:41 Ipratropium/Albuterol 3 Ml Neb INH Q4HR PRN Wheezing Apixaban 5 mg 03/26/25 21:00 04/02/25 08:10 Apixaban 5 Mg Tablet PO 5 mg BID REMEDIOS Administration Docusate Sodium 250 - 500 mg 03/27/25 09:00 04/02/25 08:10 Docusate Sodium 250 Mg Capsule PO Not Given DAILY REMEDIOS Hydroxyzine Pamoate 25 mg 03/27/25 21:08 03/28/25 20:55 Hydroxyzine Pamoate 25 Mg Capsule PO 25 mg QPM PRN Administration Insomnia Insulin Glargine-yfgn 15 unit 04/02/25 21:00 Insulin Glargine-Yfgn 300 Unit/3 Ml Pen SUBQ QPM REMEDIOS Insulin Human Lispro 2 - 10 unit 04/01/25 08:00 04/02/25 12:10 Insulin Lispro 300 Unit/3 Ml Pen SUBQ 4 unit 0800,1200,1700,2100 REMEDIOS Administration Protocol Melatonin 3 mg 03/29/25 21:00 04/01/25 21:05 Melatonin 3 Mg Tablet PO 3 mg QPM REMEDIOS Administration Multivitamins/Minerals 1 tab 03/27/25 08:00 04/02/25 08:10 Multivitamin W/Minerals Tablet PO 1 tab DAILYWM REMEDIOS Administration Ondansetron HCl 4 mg 03/25/25 19:41 04/02/25 06:10 Ondansetron 4 Mg/2 Ml Vial IVP 4 mg Q6HR PRN Administration Nausea / Vomiting Polyethylene Glycol 17 gm 03/27/25 09:00 04/02/25 08:10 Polyethylene Glycol 3350 17 Gm Packet PO Not Given DAILY REMEDIOS Senna 8.6 - 17.2 mg 03/27/25 09:00 04/02/25 08:10 Senna 8.6 Mg Tablet PO Not Given DAILY REMEDIOS Sodium Chloride 10 ml 03/25/25 19:41 Sodium Chloride Flush 0.9% 10 Ml Syringe IVP PRN PRN NEEDED PER PROVIDER ORDERS Sodium Chloride 10 ml 03/26/25 01:00 04/02/25 08:10 Sodium Chloride Flush 0.9% 10 Ml Syringe IVP 10 ml 0100,0900,1700 [facility] Administration Objective Vital Signs/Intake & Output Reviewed Vital Signs: Yes Vital Signs: Vital Signs x48h Temp Pulse Resp BP Pulse Ox 04/02/25 07:37 36.6 C 92 18 150/96 H 95 Intake & Output: Intake & Output 03/30/25 03/31/25 04/01/25 04/02/25 23:59 23:59 23:59 23:59 Intake Total 1700 / 1700 1310 / 1310 1506 / 1506 240 / 240 Output Total 1350 / 1350 400 / 400 625 / 625 Balance 350 / 350 910 / 910 881 / 881 240 / 240 Objective General Appearance: positive No acute distress and Alert Eyes Bilateral: positive Normal inspection, PERRL, EOMI and Conjunctivae nml ENT: positive ENT inspection nml, Pharynx nml and No signs of dehydration Neck: positive Nml inspection, Thyroid nml, No JVD and Trachea midline Respiratory: positive Chest non-tender, No respiratory distress and Breath sounds nml Cardiovascular: positive No murmur, No gallop and Irregularly irregular Abdomen: positive Non-tender, No organomegaly and Nml bowel sounds Skin: positive Color nml, No rash, Warm and Dry Extremities: positive Full ROM, Nml appearance and No pedal edema Neurologic/Psychiatric: positive Oriented x3 Lab Results 03/30/25 06:27 03/30/25 06:27 Other Labs: Lab Results x24hrs 04/02/25 04/02/25 04/01/25 Range/Units 11:28 07:30 21:07 POC Whole Bld Glucose 184 150 257 (70-100) mg/dL 04/01/25 Range/Units 16:40 POC Whole Bld Glucose 188 (70-100) mg/dL Sepsis Event Note (H) Evaluation Current Stage of Sepsis: Resolved Possible source of Sepsis: positive Pulmonary Sepsis Criteria Sepsis Criteria: WBC count greater than 12,000 or less than 4000 Assessment/Plan Problem List (1) Stroke due to embolism: Impression: Patient underwent CVA workup due to new left sided neglect. MRI revealed acute infarct in the right inferior occipital gyrus, with no hemorrhagic conversion. This seems to be consistent with the patients HPI and clinical presentation. CTA head/neck was Unremarkable with no evidence of large vessel occlusion, aneurysm or vascular malformation revealed. Neuro during PE reveals no focal neuro deficit. Since the CTA had negative findings patient was started back on Eliquis to treat his aFib. - Stroke workup complete - Continue Eliquis 03/30: Remains medically clear for discharge. Continue Eliquis Qualifiers: Laterality of affected vessel: right (2) Diabetes: Impression: Strongly suspect noncompliance at home We have been managing his insulin with 10 units every afternoon Lantus and SSI. He continues to be hyperglycemic, with blood sugars as high as 257 in the past day. I have increased his dose of Lantus to 15 units (3) Altered mental status: Impression: Patient has experiencing failure to thrive compounded with dementia. Spoke with patient today about SW working on placing him in a SNF near [facility]. Today patient was talkative as usual and alert, he understands hes medically cleared and awaiting SNF placement. He is looking forward to being near his family. (4) CAP (community acquired pneumonia): Impression: Chest xray from 03/25/25 revealed right basilar opacity in addition to a WBC that correlates to an infection. PE reveals right sided basilar rales. WBC count has normalized, currently at 9.1 down from 9.2 and normal O2 sats on RA. Treatments continue to show positive trends, switched to PO meds yesterday. - Continue to trend WBCs 03/30: Today is last day of Augmentin 03/31: He has now completed his course of antibiotics for pneumonia (5) Clavicle fracture: Impression: Distal clavicle fracture noted on x-ray 02/17. Nonoperative (6) History of atrial fibrillation: Impression: Long standing history of aFib. - Continue Apixaban (7) Failure to thrive in adult: Impression: Discussed placement to SNF at [facility], placement got denied because they don't have memory care. His presentation is in line with dementia which is causing poor medicine complaince as well as impairment of cogniative abilitys that affect ADLs.
[2025-04-02] MEDS: INSULIN GLARGINE-YFGN 300 UNIT/3 ML PEN SUBQ SCH (20:38)
--- NOTE | 2025-04-03 11:35 | PROVIDER PROGRESS NOTE ---
Subjective Prog Note Date Prog Note Date: 04/03/25 Subjective Pt reports feeling: No change Current Medications Current Medications Current Medications: Current Medications Generic Name Dose Route Start Last Admin Trade Name Freq PRN Reason Stop Dose Admin Acetaminophen 650 mg 03/25/25 19:41 04/03/25 04:39 Acetaminophen 325 Mg Tablet PO 650 mg Q4HR PRN Administration Pain 1 to 4, or Fever Albuterol/Ipratropium 3 ml 03/25/25 19:41 Ipratropium/Albuterol 3 Ml Neb INH Q4HR PRN Wheezing Apixaban 5 mg 03/26/25 21:00 04/03/25 09:09 Apixaban 5 Mg Tablet PO 5 mg BID REMEDIOS Administration Docusate Sodium 250 - 500 mg 03/27/25 09:00 04/03/25 09:09 Docusate Sodium 250 Mg Capsule PO 250 mg DAILY REMEDIOS Administration Hydroxyzine Pamoate 25 mg 03/27/25 21:08 03/28/25 20:55 Hydroxyzine Pamoate 25 Mg Capsule PO 25 mg QPM PRN Administration Insomnia Insulin Glargine-yfgn 15 unit 04/02/25 21:00 04/02/25 20:38 Insulin Glargine-Yfgn 300 Unit/3 Ml Pen SUBQ 15 unit QPM REMEDIOS Administration Insulin Human Lispro 2 - 10 unit 04/01/25 08:00 04/03/25 09:09 Insulin Lispro 300 Unit/3 Ml Pen SUBQ 2 unit 0800,1200,1700,2100 REMEDIOS Administration Protocol Melatonin 3 mg 03/29/25 21:00 04/02/25 21:42 Melatonin 3 Mg Tablet PO 3 mg QPM REMEDIOS Administration Multivitamins/Minerals 1 tab 03/27/25 08:00 04/03/25 09:09 Multivitamin W/Minerals Tablet PO 1 tab DAILYWM REMEDIOS Administration Ondansetron HCl 4 mg 03/25/25 19:41 04/02/25 06:10 Ondansetron 4 Mg/2 Ml Vial IVP 4 mg Q6HR PRN Administration Nausea / Vomiting Polyethylene Glycol 17 gm 03/27/25 09:00 04/03/25 07:37 Polyethylene Glycol 3350 17 Gm Packet PO Not Given DAILY REMEDIOS Senna 8.6 - 17.2 mg 03/27/25 09:00 04/03/25 07:37 Senna 8.6 Mg Tablet PO Not Given DAILY REMEDIOS Sodium Chloride 10 ml 03/25/25 19:41 Sodium Chloride Flush 0.9% 10 Ml Syringe IVP PRN PRN NEEDED PER PROVIDER ORDERS Sodium Chloride 10 ml 03/26/25 01:00 04/03/25 09:09 Sodium Chloride Flush 0.9% 10 Ml Syringe IVP 10 ml 0100,0900,1700 REMEDIOS Administration Objective Vital Signs/Intake & Output Reviewed Vital Signs: Yes Vital Signs: Vital Signs x48h Temp Pulse Resp BP Pulse Ox 04/03/25 07:28 36.6 C 83 18 133/83 H 98 Intake & Output: Intake & Output 03/31/25 04/01/25 04/02/25 04/03/25 23:59 23:59 23:59 23:59 Intake Total 1310 / 1310 1506 / 1506 658 / 658 240 / 240 Output Total 400 / 400 625 / 625 525 / 525 300 / 300 Balance 910 / 910 881 / 881 133 / 133 -60 / -60 Objective General Appearance: positive No acute distress and Alert Eyes Bilateral: positive Normal inspection, PERRL, EOMI and Conjunctivae nml ENT: positive ENT inspection nml, Pharynx nml and No signs of dehydration Neck: positive Nml inspection, Thyroid nml, No JVD and Trachea midline Respiratory: positive Chest non-tender, No respiratory distress and Breath sounds nml Cardiovascular: positive No murmur, No gallop and Irregularly irregular Abdomen: positive Non-tender, No organomegaly and Nml bowel sounds Skin: positive Color nml, No rash, Warm and Dry Extremities: positive Full ROM, Nml appearance and No pedal edema Neurologic/Psychiatric: positive Oriented x3 Lab Results 03/30/25 06:27 03/30/25 06:27 Other Labs: Lab Results x24hrs 04/03/25 04/03/25 04/02/25 Range/Units 11:14 07:26 20:37 POC Whole Bld Glucose 150 149 181 (70-100) mg/dL 04/02/25 Range/Units 16:41 POC Whole Bld Glucose 189 (70-100) mg/dL Sepsis Event Note (H) Evaluation Current Stage of Sepsis: Resolved Possible source of Sepsis: positive Pulmonary Sepsis Criteria Sepsis Criteria: WBC count greater than 12,000 or less than 4000 Assessment/Plan Problem List (1) Stroke due to embolism: Impression: Patient underwent CVA workup due to new left sided neglect. MRI revealed acute infarct in the right inferior occipital gyrus, with no hemorrhagic conversion. This seems to be consistent with the patients HPI and clinical presentation. CTA head/neck was Unremarkable with no evidence of large vessel occlusion, aneurysm or vascular malformation revealed. Neuro during PE reveals no focal neuro deficit. Since the CTA had negative findings patient was started back on Eliquis to treat his aFib. - Stroke workup complete - Continue Eliquis 03/30: Remains medically clear for discharge. Continue Eliquis Qualifiers: Laterality of affected vessel: right (2) Diabetes: Impression: Strongly suspect noncompliance at home We have been managing his insulin with 10 units every afternoon Lantus and SSI. He continues to be hyperglycemic, with blood sugars as high as 257 in the past day. I have increased his dose of Lantus to 15 units 04/03: His blood sugars are under much better control today. A.m. sugar was 149. Continue Lantus to 15 units (3) Altered mental status: Impression: Patient has experiencing failure to thrive compounded with dementia. Spoke with patient today about SW working on placing him in a SNF near [place]. Today patient was talkative as usual and alert, he understands hes medically cleared and awaiting SNF placement. He is looking forward to being near his family. (4) CAP (community acquired pneumonia): Impression: Chest xray from 03/25/25 revealed right basilar opacity in addition to a WBC that correlates to an infection. PE reveals right sided basilar rales. WBC count has normalized, currently at 9.1 down from 9.2 and normal O2 sats on RA. Treatments continue to show positive trends, switched to PO meds yesterday. - Continue to trend WBCs 03/30: Today is last day of Augmentin 03/31: He has now completed his course of antibiotics for pneumonia (5) Clavicle fracture: Impression: Distal clavicle fracture noted on x-ray 02/17. Nonoperative (6) History of atrial fibrillation: Impression: Long standing history of aFib. - Continue Apixaban (7) Failure to thrive in adult: Impression: Discussed placement to SNF at [facility], placement got denied because they don't have memory care. His presentation is in line with dementia which is causing poor medicine complaince as well as impairment of cogniative abilitys that affect ADLs.
--- NOTE | 2025-04-04 12:38 | Discharge Summary ---
Discharge Summary Admit Date: 03/25/25 Discharge Date: 04/04/25 Discharging Provider: Ginette Byrd PA-C Primary Care Provider: Joseph Valdivia MD Code Status: Do Not Attempt Resuscitation DIAGNOSES Discharge Diagnoses with Status of Each Condition: Embolic stroke, acute Diabetes, chronic. A1C 11% AMS, chronic, and stable. CAP, treated and resolved Clavicle fracture, non operative. history of a-fib, on eliquis Failure to thrive. HPI History of Present Illness: 79-year-old male who presents to the emergency department today with failure to thrive/found down. Presented to the ED via EMS found in his own urine during a welfare check. The only history him given as he has a history of dementia which is rapidly progressing per his brother who called for the welfare check. Patient lives alone. Limited records available. I can find a history and physical from a cataract repair in 2019 otherwise there are no records available in [place]. He lists a PCP of Dr. Angela Flores in [place]. According to his preoperative history and physical filled out by the brush stainer in 2019 has a history of hypertension, atrial fibrillation, traumatic brain injury, RAMON, diabetes. Today he is oriented to self only. Additional history on HD #2: He has been a little less confused this AM. Was able to eat some breakfast this AM. He tells me that he has been taking all of his meds. Today he is able to tell me that he sees Dr Valdivia at the [facility] clinic in [place]. He continues to be somewhat confused. At times he is oriented to self and place, and then later this afternoon, he is hallucinating. His brother arrives at the bedside at about 430 this afternoon. He states that Bryan has had a an acute decline in the last 2 weeks or so. His brother has been calling him 2 times a day and has set up his medications in pill amanda so that he will take them. However he is not taking his medications. His brother notes that the left sided neglect that we noted on admission is new since yesterday. What happened was Shekhar called his brother using his [employer] device at about 1:00 in the morning and said he could not find his phone then about 9:00 in the morning he called Shekhar again very confused the 9 AM call was what precipitated the welfare check that eventually landed the patient in the hospital. There is no family here on the [place] to help. The patient lives alone, he has 7 sisters home care who comes into the home on Wednesday and Wednesday to help him do his shopping and do some light cleaning. The brother comes up weekly to check in on him. Overall though his brother Shekhar relates to me that the situation is rather untenable and this is illustrated by the events of the last 24 hours. HOSPITAL COURSE Hospital Course: 79M living at home alone previously with multiple falls, failure to thrive, medication non compliance presents to ED after being found down at home on a welfare check. He had acute left sided neglect, attribuatable to acute CVA seen on MRI on HD #2. (1) Stroke due to embolism: Patient underwent CVA workup due to new left sided neglect. MRI revealed acute infarct in the right inferior occipital gyrus, with no hemorrhagic conversion. This seems to be consistent with the patients HPI and clinical presentation. CTA head/neck was Unremarkable with no evidence of large vessel occlusion, aneurysm or vascular malformation revealed. Eliquis, which was a home med, was restarted, after conversation with his brother regarding increased risk for hemorrhage with falls on Eliquis. (2) Diabetes: Strongly suspect noncompliance at home We have been managing his insulin with 15 units every afternoon Lantus and SSI. not needing the SSI with increased LAntus coverage. no contraindication to starting metformin in outpatient environment. A1c was 11% on admission indicating medical noncompliance at home. I do not have an accurate medication reconciliation, therefore I do not know what the patient was to have been taking at home. (3) Altered mental status: Patient has experiencing failure to thrive compounded with dementia. Today upon discharge he is alert and oriented to self, place, time and situation. He is looking forward to transfer to facility close to his family as he has no one here on [facility]. (4) CAP (community acquired pneumonia): Chest xray from 03/25/25 revealed right basilar opacity in addition to a WBC that correlates to an infection. WBC count has normalized, currently at 9.1 down from 9.2 and normal O2 sats on RA. Off antibiotics for community-acquired pneumonia as of 03/31/2025. (5) Clavicle fracture: Distal clavicle fracture noted on x-ray 02/17. Nonoperative (6) History of atrial fibrillation: Long standing history of aFib. - Continue Apixaban (7) Failure to thrive in adult: His presentation is in line with dementia which is causing poor medicine complaince as well as impairment of cogniative abilitys that affect ADLs. ALLERGIES Allergies Allergy/AdvReac Type Severity Reaction Status Date / Time phenytoin (From Dilantin) Allergy Unknown Verified 03/25/25 14:45 lisinopril AdvReac Mild Unknown Verified 03/25/25 14:45 MEDICATIONS Ambulatory Orders Medication Instructions Recorded Confirmed acetaminophen 325 mg tablet 650 mg (2 x 325 mg) PO Q4H R PRN 04/04/25 Pain 1 to 4, or Fever #90 tabs apixaban 5 mg tablet (Eliquis) 5 mg PO BID #60 tabs docusate sodium 250 mg capsule 250 - 500 mg (1 - 2 x 2 50 mg) PO 04/04/25 DAILY #90 caps hydroxyzine pamoate 25 mg capsule 25 mg PO QPM PRN Ins omnia #30 caps 04/04/25 insulin glargine-yfgn 100 unit/mL 15 unit (0.15 mL) piña bcut QPM #15 mL 04/04/25 (3 mL) subcutaneous pen ipratropium 0.5 mg-albuterol 3 mg 3 ml inhalation Q4HR PRN Wheezing 04/04/25 (2.5 mg base)/3 mL nebulization #180 mL soln melatonin 3 mg tablet 3 mg PO QPM #30 tabs 5 poirluyvhxuh-cidncdth-dwcz 1 tab PO DAILYWM #30 tabs 1 fumarate 19 mg-folic acid 400 mcg tablet (Therapeutic-M) polyethylene glycol 3350 17 gram 17 g PO DAILY #30 ea 04/04/25 oral powder packet PHYSICAL EXAM AT DISCHARGE Vital Signs: Vital Signs x48h Temp Resp BP Pulse Ox 04/04/25 08:24 36.6 C 18 182/115 H 97 General Appearance: positive No acute distress and Alert Eyes Bilateral: positive Conjunctivae nml ENT: positive ENT inspection nml Neck: positive Nml inspection Respiratory: positive No respiratory distress and Breath sounds nml Cardiovascular: positive Regular rate & rhythm Abdomen: positive Non-tender, No distention and Other (reducible umbilical hernia) Skin: positive Other (rash on extensor surfaces of knees and periumbilical noted, consistent with psoriasis); negative No rash LABS 03/30/25 06:27 03/30/25 06:27 DIAGNOSTIC IMAGING Diagnostic Imaging Results Comments: Head CT: No acute intracranial pathology Cervical spine CT: No acute cervical findings Chest x-ray: Right basilar opacity concerning for pneumonia Brain MRI: Acute infarct in the right inferior occipital gyrus. No hemorrhagic conversion CTA of the head and neck: Unremarkable. No evidence of large vessel occlusion, aneurysm or vascular malformation. SEPSIS Current Stage of Sepsis: Resolved Possible source of Sepsis: Pulmonary FOLLOW UP Follow Up: PCP as assigned at [facility] TIME SPENT Time Spent in Discharge (Minutes): 45 Discharge Plan Discharge Patient Disposition: [facility] DC/Xfer Condition: Stable Prescriptions: New acetaminophen 325 mg Tablet 650 mg PO Q4HR PRN (Reason: Pain 1 to 4, or Fever) Qty: 90 0RF ipratropium-albuterol 0.5 mg-3 mg(2.5 mg base)/3 mL Solution For Nebulization 3 ml inhalation Q4HR PRN (Reason: Wheezing) Qty: 180 0RF polyethylene glycol 3350 17 gram Powder In Packet 17 g PO DAILY Qty: 30 0RF melatonin 3 mg Tablet 3 mg PO QPM Qty: 30 0RF docusate sodium 250 mg Capsule 250 - 500 mg PO DAILY Qty: 90 0RF hydroxyzine pamoate 25 mg Capsule 25 mg PO QPM PRN (Reason: Insomnia) Qty: 30 0RF Eliquis 5 mg Tablet 5 mg PO BID Qty: 60 0RF Therapeutic-M 19 mg iron- 400 mcg Tablet 1 tab PO DAILYWM Qty: 30 0RF insulin glargine-yfgn 100 unit/mL (3 mL) Insulin Pen 15 unit subcut QPM Qty: 15 0RF Activity Restrictions: Activity as Tolerated Diet: Diabetic Health Concerns: 79M living at home alone previously with multiple falls, failure to thrive, medication non compliance presents to ED after being found down at home on a welfare check. He had acute left sided neglect, attribuatable to acute CVA seen on MRI on HD #2. (1) Stroke due to embolism: Patient underwent CVA workup due to new left sided neglect. MRI revealed acute infarct in the right inferior occipital gyrus, with no hemorrhagic conversion. This seems to be consistent with the patients HPI and clinical presentation. CTA head/neck was Unremarkable with no evidence of large vessel occlusion, aneurysm or vascular malformation revealed. Eliquis, which was a home med, was restarted, after conversation with his brother regarding increased risk for hemorrhage with falls on Eliquis. (2) Diabetes: Strongly suspect noncompliance at home We have been managing his insulin with 15 units every afternoon Lantus and SSI. not needing the SSI with increased LAntus coverage. no contraindication to starting metformin in outpatient environment. A1c was 11% on admission indicating medical noncompliance at home. I do not have an accurate medication reconciliation, therefore I do not know what the patient was to have been taking at home. (3) Altered mental status: Patient has experiencing failure to thrive compounded with dementia. Today upon discharge he is alert and oriented to self, place, time and situation. He is looking forward to transfer to facility close to his family as he has no one here on [facility]. (4) CAP (community acquired pneumonia): Chest xray from 03/25/25 revealed right basilar opacity in addition to a WBC that correlates to an infection. WBC count has normalized, currently at 9.1 down from 9.2 and normal O2 sats on RA. Off antibiotics for community-acquired pneumonia as of 03/31/2025. (5) Clavicle fracture: Distal clavicle fracture noted on x-ray 02/17. Nonoperative (6) History of atrial fibrillation: Long standing history of aFib. - Continue Apixaban (7) Failure to thrive in adult: His presentation is in line with dementia which is causing poor medicine complaince as well as impairment of cogniative abilitys that affect ADLs. Print Language: Luxembourger Patient Instructions: Discharge Instructions for Stroke Stand Alone Forms: PCP List Follow-up Care: JOSEPH VALDIVIA MD [Physician No Access, [facility]] Vitals documented within 30 minutes of discharge?: Yes
[2025-04-04 14:36] VITALS: BP 179/86; TEMP 97.7; O2SAT 95
== END 2025-04-04 14:28 | DRG 64 ==
LOC: ED 14:28 → MS2 19:09
PROVIDERS: ADMIT Physician Assistant Medical; ATTEND Physician Assistant Medical
DX: I48.91 Unspecified atrial fibrillation; Z91.128 Patient's intentional underdosing of medication regimen for other reason; R44.1 Visual hallucinations; G47.33 Obstructive sleep apnea (adult) (pediatric); J18.9 Pneumonia, unspecified organism; T50.916A Underdosing of multiple unspecified drugs, medicaments and biological substances, initial encounter; Z91.81 History of falling; Z60.2 Problems related to living alone; R09.02 Hypoxemia; S42.002D Fracture of unspecified part of left clavicle, subsequent encounter for fracture with routine healing; A41.9 Sepsis, unspecified organism; R62.7 Adult failure to thrive; E11.9 Type 2 diabetes mellitus without complications; I10 Essential (primary) hypertension; Z87.820 Personal history of traumatic brain injury; Z66 Do not resuscitate; R41.82 Altered mental status, unspecified; Q21.12 Patent foramen ovale; R41.4 Neurologic neglect syndrome; Z79.01 Long term (current) use of anticoagulants; Z68.25 Body mass index [BMI] 25.0-25.9, adult; I63.9 Cerebral infarction, unspecified; F03.90 Unspecified dementia, unspecified severity, without behavioral disturbance, psychotic disturbance, mood disturbance, and anxiety; E86.0 Dehydration